=== PATIENT | male | born 1950 | race Caucasian/White ===

== ENCOUNTER → 2017-01-27 | Day surgery (SDC) | payer MEDICARE ==
[~2017-01-27] MED LIST: ACETAMINOPHEN 1000 MG/100 ML 100 ML IV ONE; BUPIVACAINE/EPINEPHRINE 0.25% 50 ML VIAL ONE; GLYCOPYRROLATE 1 MG/5 ML SYRINGE IV PUSH ONE; KETOROLAC TROMETHAMINE 30 MG/ML (IVP) VIAL IV PUSH ONE; LACTATED RINGER'S 1000 ML INJ 1,000 ML ONE; MEPERIDINE HCL 25 MG/ML VIAL ONE; METF500T PO; MIDAZOLAM HCL 2 MG/2 ML VIAL ONE; NEOSTIGMINE 3 MG/3 ML SYR IV ONE; ONDANSETRON HCL 4 MG/2 ML VIAL IV PUSH ONE; PROPOFOL 200 MG/20 ML AMP IV ONE; ROCURONIUM INJ 50 MG/5 ML SYRINGE IV PUSH ONE; TAMS5CAP PO; ceFAZolin 2 GM PREMIX 50 ML ONE; oxyCODONE/ACETAMINOPHEN 5 MG/325 MG TAB ONE
--- NOTE | 2017-01-27 10:36 | MP ---
cc: NIRAV HERR DATE OF SURGERY 01/27/2017 PREOPERATIVE DIAGNOSIS Chronic cholecystitis, cholelithiasis. POSTOPERATIVE DIAGNOSIS Chronic cholecystitis, cholelithiasis. PROCEDURE Laparoscopic cholecystectomy. SURGEON Nirav Herr MD ASSOCIATE MERCHANT Yazan Diaz, MS-3 ANESTHESIA General endotracheal OPERATIVE FINDINGS The patient was found to have a chronically diseased appearing gallbladder with a fair amount of scar tissue around the Nany's pouch area. The cystic duct was foreshortened, but it as well as the common bile duct were seen to be of normal caliber. There were no other abnormalities noted other than dense adhesions in the pelvis from his previous radiation therapy. OPERATIVE PROCEDURE The patient was brought to the operating room and after satisfactory general endotracheal anesthesia obtained, the abdomen was prepped and draped in the usual sterile fashion. 0.25% Marcaine with epinephrine was used to infiltrate the skin for local anesthesia. A small incision was made just above the umbilicus and a 5 mm trocar was inserted into the peritoneal cavity under direct visualization. The abdomen was then distended to 15 mmHg using carbon dioxide after which the camera was reinserted and the area was inspected for visceral injury, with none being identified. Under direct visualization, a 12 port and a 5 port were placed in the upper midline. The fundus of the gallbladder was identified, grasped and retracted superiorly over the right lobe of the liver. Nany's pouch was cleared of adhesions by blunt dissection after which it was grasped and retracted inferiorly and laterally, placing tension on the hepatoduodenal ligament. The cystic duct and cystic artery were both dissected free bluntly to obtain the critical view. The cystic duct was seen to be short as noted above and it was clipped near its junction with the common bile duct and divided with the harmonic scalpel near the gallbladder. The harmonic scalpel was then used to divide the cystic artery as well. The gallbladder was dissected free from the liver bed using the harmonic scalpel. The gallbladder was then placed within an EndoCatch bag and brought through the upper midline incision where it was withdrawn without problem. The cystic duct and cystic artery stumps were both inspected and found to be intact with no leakage of bile or blood. Irrigation was carried out hemostasis checked for again and found to be satisfactory. The pelvis was inspected and no gross abnormalities were noted other than dense scar tissue from his radiation therapy. The carbon dioxide was then vented as completely as possible to the atmosphere after which the ports were removed. The 12 mm fascial defect was closed with interrupted 0 Vicryl suture and the skin closed with interrupted 4-0 PDS subcuticular stitches. Steri-Strips were applied and the patient was then awakened and taken from the operating room, in satisfactory condition, having tolerated the procedure without problem. ESTIMATED BLOOD LOSS Less than 50 mL COUNTS The instrument, sponge, and needle counts were reported as being correct x2 at the end of procedure. MD IMANI Tracy/STORM /10:01 AM /10:28 AM
== END | disposition home or self-care (01) ==
LOC: ESDC 06:51
PROVIDERS: ATTEND Surgery
DX: K80.10 Calculus of gallbladder with chronic cholecystitis without obstruction (principal)
CPT/HCPCS: 00790; 47562; 88304; J0131; J0690; J1885; J2175; J2250; J2405; J2710; J3010; J7120

== ENCOUNTER 2017-04-28 14:43 | Inpatient (IN) | payer MEDICARE ==
[~2017-04-28 14:43] MED LIST changes: -ACETAMINOPHEN 1000 MG/100 ML 100 ML IV ONE; -BUPIVACAINE/EPINEPHRINE 0.25% 50 ML VIAL ONE; -GLYCOPYRROLATE 1 MG/5 ML SYRINGE IV PUSH ONE; -KETOROLAC TROMETHAMINE 30 MG/ML (IVP) VIAL IV PUSH ONE; -LACTATED RINGER'S 1000 ML INJ 1,000 ML ONE; -MEPERIDINE HCL 25 MG/ML VIAL ONE; -MIDAZOLAM HCL 2 MG/2 ML VIAL ONE; -NEOSTIGMINE 3 MG/3 ML SYR IV ONE; -ONDANSETRON HCL 4 MG/2 ML VIAL IV PUSH ONE; -PROPOFOL 200 MG/20 ML AMP IV ONE; -ROCURONIUM INJ 50 MG/5 ML SYRINGE IV PUSH ONE; -ceFAZolin 2 GM PREMIX 50 ML ONE; -oxyCODONE/ACETAMINOPHEN 5 MG/325 MG TAB ONE
[2017-04-28] MEDS ORDERED: LIDOCAINE HCL 1% 20 ML VIAL ONE (15:55)
[2017-04-28 16:00] VITALS: BP 134/76; PULSE 107; RESP 20; TEMP 96.9; O2SAT 99
[2017-04-28] MEDS: PANTOPRAZOLE SODIUM 40 MG VIAL IV PUSH SCH (16:08)
[2017-04-28] MEDS: SODIUM CHLOR 0.9% 1000 ML INJ 1,000 ML IV SCH (16:09)
[2017-04-28 16:22] LABS: AUTOMATED NEUTROPHIL # 5.8 TH/MM3 (1.8-7.7); BASOPHIL % 0.3 % (0.0-2.0); EOSINOPHIL # 0.1 TH/MM3 (0-0.4); EOSINOPHIL % 1.1 % (0.0-4.0); HEMATOCRIT 30.1 % (39.0-51.0); HEMOGLOBIN 9.7 GM/DL (13.0-17.0); LYMPH % 22.4 % (9.0-44.0); MEAN CELL VOLUME 74.7 FL (80.0-100.0); MEAN CORPUSCULAR HEMOGLOBIN 24.1 PG (27.0-34.0); MEAN CORPUSCULAR HGB CONC 32.2 % (32.0-36.0); MONOCYTE # 1.1 TH/MM3 (0-0.9); NEUT % 64.2 % (16.0-70.0); PLATELET COUNT 526 TH/MM3 (150-450); RED BLOOD COUNT 4.03 MIL/MM3 (4.50-5.90)
[2017-04-28 16:28] LABS: INTERNATIONAL NORMALIZED RATIO 1.2 RATIO; PROTHROMBIN TIME - PATIENT 11.9 SEC (9.8-11.6)
--- NOTE | 2017-04-28 16:37 | RADRPT ---
EXAM DATE/TIME: 04/28/2017 16:21 [facility] COMPARISON: No previous studies available for comparison. INDICATIONS : Pelvic pain in left lower region. ORAL CONTRAST: Prescribed oral contrast ingested. RADIATION DOSE: 10.18 CTDIvol (mGy) MEDICAL HISTORY : Cardiovascular disease. Diabetes mellitus type 2. SURGICAL HISTORY : None. ENCOUNTER: Initial ACUITY: 1 day PAIN SCALE: 2/10 LOCATION: Left pelvis TECHNIQUE: Volumetric scanning of the pelvis was performed. Using automated exposure control and adjustment of the mA and/or kV according to patient size, radiation dose was kept as low as reasonably achievable t o obtain optimal diagnostic quality images. DICOM format image data is available electronically for review and comparison. FINDINGS: CT of the pelvis was performed to determine if the questioned pelvic collection is actually extralumi nal or not. Unfortunately, contrast still has not passed into the left colon and rectosigmoid region and therefore the scan remains somewhat indeterminate. I would recommend giving the patient more oral contrast at this time and re-scanning the pelvis in the morning to determine if the collection is tr mariama extraluminal. If so, an abscess drain can be placed. CONCLUSION: CT of the pelvis was performed to determine if the questioned pelvic collection is actually extralumi nal or not. Unfortunately, contrast still has not passed into the left colon and rectosigmoid region and therefore the scan remains somewhat indeterminate. I would recommend giving the patient more oral contrast at this time and re-scanning the pelvis in the morning to determine if the collection is tr mariama extraluminal. If so, an abscess drain can be placed. Jayme Gutierrez MD on April 28, 2017 at 16:28 Board Certified Radiologist. This report was verified electronically.
[2017-04-28 16:45] LABS: ALBUMIN 2.5 GM/DL (3.4-5.0); ALT (GPT) 40 U/L (12-78); AST (GOT) 22 U/L (15-37); BLOOD UREA NITROGEN 10 MG/DL (7-18); CALCIUM 8.9 MG/DL (8.5-10.1); CHLORIDE 96 MEQ/L (98-107); CREATININE 0.64 MG/DL (0.60-1.30); GLOMERULAR FILTRATION RATE 125 ML/MIN (>89); GLUCOSE,RANDOM 138 MG/DL (74-106); SODIUM (NA) 132 MEQ/L (136-145)
[2017-04-28 16:47] LABS: ALKALINE PHOSPHATASE 248 U/L (45-117); TOTAL BILIRUBIN ADULT 0.4 MG/DL (0.2-1.0); TOTAL PROTEIN 8.4 GM/DL (6.4-8.2)
[2017-04-28 20:00] VITALS: BP 135/77; PULSE 105; RESP 18; TEMP 98.6; O2SAT 97
[2017-04-28] MEDS: DEXT 5%-NACL 0.9% 1000 ML INJ 1,000 ML IV SCH (22:39)
[2017-04-29] VITALS: BP 136/78; PULSE 105; RESP 18; TEMP 98; O2SAT 98
[2017-04-29] MEDS: SODIUM CHLOR 0.9% 1000 ML INJ 1,000 ML IV SCH ×3 (02:54→19:52)
[2017-04-29] MEDS ORDERED: DIATRIZOATE MEGLUM/DIATRIZOATE SOD 9 ML CUP PO SCH (06:00)
[2017-04-29 08:00] VITALS: BP 134/76; PULSE 111; RESP 16; TEMP 97.9; O2SAT 98
--- NOTE | 2017-04-29 08:41 | RADRPT ---
EXAM DATE/TIME: 04/29/2017 08:15 [facility] COMPARISON: CT PELVIS W/O CONTRAST, April 28, 2017, 16:21. INDICATIONS : Pelvic pain. ORAL CONTRAST: Prescribed oral contrast ingested. RADIATION DOSE: 10.36 CTDIvol (mGy) MEDICAL HISTORY : Hypertension. diabetes SURGICAL HISTORY : Cholecystectomy. ENCOUNTER: Initial ACUITY: 1 day PAIN SCALE: 5/10 LOCATION: Bilateral pelvis TECHNIQUE: Volumetric scanning of the pelvis was performed. Using automated exposure control and adjustment of the mA and/or kV according to patient size, radiation dose was kept as low as reasonably achievable t o obtain optimal diagnostic quality images. DICOM format image data is available electronically for review and comparison. FINDINGS: CT of the pelvis in the axial, coronal and sagittal planes now demonstrates adequate contrast opacifi cation of the left colon, sigmoid colon and rectum. There is evidence of a walled-off extraluminal co llection of air and contrast anterior to the mid sigmoid colon and superior to the urinary bladder wh ich extends to the level of the umbilicus indicating walled-off abscess. This collection measures 10. 2 cm sagittal by 6.0 cm AP by 5.7 cm transverse. There is significant wall thickening involving the m id sigmoid colon suggesting diverticulitis as the etiology of this extraluminal collection. The super ior wall of the urinary bladder appears somewhat thickened. No intraluminal air or contrast is noted within the urinary bladder to suggest colovesical fistula. Bilateral inguinal hernias (right larger than left) are again noted and contain only fat. The prostat e gland is stable. Degenerative changes are noted within the lower lumbar spine. CONCLUSION: Walled-off extraluminal collection of air and contrast anterior to the mid sigmoid colon and superior to the urinary bladder which extends to the level of the umbilicus indicating walled-off abscess. Th is collection measures 10.2 cm sagittal by 6.0 cm AP by 5.7 cm transverse. There is significant wall thickening involving the mid sigmoid colon suggesting diverticulitis as the etiology of this extralum inal collection. The superior wall of the urinary bladder appears somewhat thickened. No intraluminal air or contrast is noted within the urinary bladder. Jayme Gutierrez MD on April 29, 2017 at 8:27 Board Certified Radiologist. This report was verified electronically.
--- NOTE | 2017-04-29 09:45 | MH ---
cc: ALTAF WATSON M.D. DATE OF ADMISSION: 04/28/2017 ADMITTING DIAGNOSIS Abdominal pain, weight loss, history of anal cancer, abnormal CAT scan. CHIEF COMPLAINT Mr. Ashby is a 66-year-old male who complains of weight loss and abdominal pain. HISTORY OF PRESENT ILLNESS Mr. 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 The patient underwent radiation and chemotherapy protocol and had resolution of his squamous cell cancer. Unfortunately, he has not been seen for the last two years. He did have laparoscopic gallbladder surgery in January of 2017 for gallstones and chronic cholecystitis. The last two months the patient's family relates a decreasing appetite and weight loss. No fevers have been documented but he has been having some shakes and cold sweats. Bowel movements have been fairly good but he complains of lower abdominal discomfort. Denies any rectal bleeding. No nausea or vomiting. He has been very lethargic and minimal daily activities. The patient was seen in the office yesterday and rectal exam did not reveal any recurrence of his anal cancer. He did not have any obvious adenopathy in either groin. He was sent for CT scanning which returned today showing a possible complex mass or abscess in the pelvis along with lesions in the liver consistent with possible metastatic disease. The patient was therefore admitted for additional workup and more expeditious evaluation. PAST MEDICAL HISTORY 1. History of anal cancer 2016, treated radiation and chemotherapy. 2. History of cystitis and bladder neoplasm. 3. History of diabetes. 4. History of gallstones. 5. History of radiation proctitis. 6. History of inguinal hernia. MEDICATIONS Please see admitting list. ALLERGIES NONE KNOWN. SOCIAL HISTORY He is a former smoker and does not admit to any present alcohol intake. PERTINENT PHYSICAL GENERAL: A very pleasant, chronically ill-appearing male in no acute distress. HEENT: Remarkable for pale dry membranes. Nonicteric sclerae. NECK: Neck was a little stiff without adenopathy. CHEST: Diminished in the bases. Clear anteriorly. HEART: Heart had a regular rhythm. ABDOMEN: Abdomen is soft, doughy, fullness in the lower abdomen. No real mass noted. Inguinal hernia not easily reducible but no inguinal adenopathy. RECTAL: Anal inspection reveals radiation changes to the perianal tissues. Digital exam reveals decreased tone. No rectal inflammation or irregularity. No blood on the finger. EXTREMITIES: Extremities showed no cyanosis or clubbing and 1 to 2+ pedal edema. LABORATORY STUDIES White count was 9000, hemoglobin 9.7, MCV was 74.7, platelet count 526,000. Coagulation studies were normal. Chemistry show elevated alk phos to 248, total protein of 8.4, albumin of 2.5, normal bilirubin, sodium of 132, BUN and creatinine were pretty normal. IMAGING CT scan reviewed showing a possible complex mass or abscess in the pelvis, hard to distinguish from diverticular disease of the sigmoid colon. Several defects in the liver consistent with metastatic disease were also noted. IMPRESSION A 66-year-old male with treated squamous cell carcinoma of the anal canal back in 2016. The patient was lost to followup for a toib-efm-y-half and now presents with weight loss and possible metastatic disease by CT scan. The process in the pelvis is a little difficult to differentiate without contrast filling the rectosigmoid. Reviewed with the radiologist and we will give him additional oral contrast or administer rectal contrast and re-scan him first thing in the morning to distinguish intraluminal verses extraluminal fluid collections, and then decide if he needs to have percutaneous drainage or surgical exploration with resection. Dr. Claudio is consulted for additional evaluation of his liver mets and possible metastatic disease. Biopsy of the liver mets may be necessary for further documentation of their pathology. MD DERRICK Franco/RADHA /10:23 PM /9:05 AM
[2017-04-29 10:41] LABS: % SATURATION IRON PROFILE 14.6 % (20-50); IRON (FE) 20 MCG/DL (65-175); TOTAL IRON BINDING CAPACITY 137 MCG/DL (250-450)
[2017-04-29 10:44] LABS: FERRITIN 632 NG/ML (26-388)
--- NOTE | 2017-04-29 11:53 | MB ---
cc: CHALINO PARRISH M.D. DATE OF CONSULTATION: 04/28/17 REASON FOR CONSULTATION Patient with previous history of anal cell cancer presenting with possible pelvic abscess and liver metastases. PATIENT PROFILE The patient is a 66-year-old male. He was born in [place], [place]. He has lived in [place] for the past 19 years. He had worked as a NUTRITIONAL HEALTH COACH but has not felt well during the past year and has been unable to work. He lives alone. He has not smoked for approximately 30 years and had smoked a pack a day for 10 years. There is no history of any significant alcohol intake. HISTORY OF PRESENT ILLNESS I originally saw the patient in August of 2005. He was found by his primary care physician to have a mass extruding from the anal canal. He was referred to Dr. Boudreaux who is a colorectal surgeon and was found to have a squamous cell carcinoma of the anal canal which was a clinical T3 N0 M0 lesion. He was treated in the classic manner receiving radiation therapy as well as mitomycin and 5-FU on two occasions. He received a total of 55.8 Gy and treatment was finished by October of 2015. For reasons unclear, he did not followup with Dr. Boudreaux or his radiation oncologist. He is a poor historian and is withdrawn and quiet. He tells me that he has not been well for the past year. He has had some vague weakness and fatigue. He recently has had suprapubic discomfort. He tells me that he had outpatient studies which have been unrevealing. His primary care physician referred him to Dr. Boudreaux, and today he had a CAT scan of the abdomen and pelvis which I personally reviewed. He has approximately three lesions in the liver which are suggestive of metastatic disease but abscesses cannot be ruled out. There is also what appears to be an abscess in the pelvis. It is difficult to tell whether it is intrinsic or extrinsic to colon or whether they are connected. He is now admitted with the above problem. He has had no fevers. There has been a 30 pound weight loss. He has felt poorly. PAST SURGICAL HISTORY 1. Cholecystectomy 01/27/2017. Found to have chronic cholecystitis and cholelithiasis. 2. Urinary bladder biopsy 01/23/2017 showing chronic cystitis. 3. 07/27/2015 colonoscopy, anoscopy, and biopsy of tumor anal canal. Found to be a non-keratinizing squamous cell carcinoma. 4. Placement of port and removal of port. 5. Cataract surgery. PAST MEDICAL HISTORY 1. Type 2 diabetes. 2. Squamous cell carcinoma of the anal canal, clinical T3 N0 M0. Treated with mitomycin, 5-FU and radiation. MEDICATIONS PRIOR TO ADMISSION The patient stopped taking medications. He was previously on Metformin and Flomax. ALLERGIES NO ALLERGIES TO MEDICINE. FAMILY HISTORY Noncontributory. REVIEW OF SYSTEMS GENERAL: There has been weight loss of 30 lbs. He has felt poorly. No change in vision or hearing. No chest pain or palpitations. No shortness of breath. GASTROINTESTINAL: No melena or hematochezia. He has had some suprapubic discomfort. GENITOURINARY: Urinary burning MUSCULOSKELETAL: No bone pain. NEUROLOGIC: No focal weakness. SKIN: No skin problems. LABORATORY FINDINGS On 04/28/2017 hemoglobin 9.7, white count 9000, platelets 526,000, MCV 74. In December 2015 the MCV was 83 and the hemoglobin was 11.4. CEA is 0.9, alk phos 248, total protein 8.4, glucose 138, bilirubin, AST and ALT are normal, and creatinine is 0.64. IMAGING The patient underwent a CT of the pelvis today to determine if there was a pelvic collection of fluid either extraluminal or not. Contrast during the study did not pass into the left colon and therefore the scan remained indeterminate. PHYSICAL EXAMINATION GENERAL: Reveals a quiet, withdrawn individual with a flat affect. It is difficult to obtain a history. He volunteers very little information. VITAL SIGNS: Blood pressure is 130/75, respiratory rate is 20, afebrile and O2 sat is 99%. HEENT: Head is normocephalic. Sclerae and conjunctivae are normal. Oropharynx is unremarkable. LYMPHATICS: There is no cervical, supraclavicular, axillary or inguinal adenopathy. HEART: Regular rhythm. LUNGS: Lungs are clear. ABDOMEN: Soft. No hepatosplenomegaly. Slight suprapubic tenderness. EXTREMITIES: Without edema. MUSCULOSKELETAL: Significant muscle wasting. NEUROLOGIC: No focal weakness. RECTAL EXAM: No masses. Stool is brown. Prostate is boggy and enlarged but without any tenderness. ASSESSMENT The patient is a 66-year-old male who was treated for a clinical T3 N0 M0 squamous cell cancer of the anal canal. Treatment was completed by October of 2015. He was subsequently lost to followup. He has had an illness which appears chronic and now has evidence of at least three lesions in the liver suggestive of either metastases or abscesses and a possible abscess arising in the pelvis, although one cannot rule out local reoccurrence of tumor. PLAN 1. I have ordered a liver biopsy. Even if he has recurrent tumor in the pelvis, it will be important to determine if he has hematogenous spread to the liver. I have requested that the biopsy material also include Gram stain, culture and sensitivity. 2. He will need further evaluation of the pelvic abscess/mass. I have spoken with Dr. Boudreaux and it is likely that the radiologist will put in a drain to determine if this can in fact be drained. It will be important to define both what is going on in the pelvis and what is going on in the liver. The above was discussed with Dr. Boudreaux. Thank you very much for the consultation. MD CHET Michaels/RADHA /8:52 PM /10:53 AM [facility]
[2017-04-29 12:00] VITALS: BP 145/81; PULSE 105; RESP 16; TEMP 99.2; O2SAT 97
[2017-04-29] MEDS: metroNIDAZOLE 500 MG INJ 100 ML IV SCH ×2 (13:02→19:52)
[2017-04-29] MEDS ORDERED: MIDAZOLAM HCL 2 MG/2 ML VIAL ONE (14:20)
[2017-04-29] MEDS ORDERED: LIDOCAINE HCL 1% 20 ML VIAL ONE (14:25)
[2017-04-29 16:00] VITALS: BP 136/75; PULSE 87; RESP 17; TEMP 96.7; O2SAT 98
[2017-04-29] MEDS: PANTOPRAZOLE SODIUM 40 MG VIAL IV PUSH SCH (16:00)
--- NOTE | 2017-04-29 16:36 | RADRPT ---
EXAM DATE/TIME: 04/29/2017 14:51 [facility] COMPARISON: No previous studies available for comparison. INDICATIONS : Pelvic abscess. SEDATION TIME: 20 minutes MEDICATION(S): 1.) 2 mg midazolam (Versed) IV 2.) 100 mcg fentanyl (Sublimaze) IV DEVICE(S): 1.) 16 Fr Skater MEDICAL HISTORY : Hypertension. Diabetes mellitus type 2. Hernia, inguinal. Anal cancer. SURGICAL HISTORY : Cholecystectomy. Cystoscopy. ENCOUNTER: Initial ACUITY: 1 day PAIN SCORE: 2/10 LOCATION: Bilateral pelvis PROCEDURE: PROCEDURE : 1. CT guided drainage of the pelvic abscess 2. Conscious sedation with continuous EKG and oximetry monitoring. The risks, benefits and alternatives to the procedure were explained and verbal and written consent w as obtained. Using automated exposure control and adjustment of the mA and/or kV according to patient size, radiation dose was kept as low as reasonably achievable to obtain optimal diagnostic quality i mages. The site was prepped in sterile fashion. Full sterile technique was used, including cap, ma sk, sterile gloves and gown and a large sterile sheet. Hand hygiene and 2% chlorhexidine and/or beta dine/alcohol prep was utilized per protocol for cutaneous antisepsis. The skin and subcutaneous tiss ues were infiltrated with local anesthetic solution. DICOM format image data is available electronic ally for review and comparison. Using CT guidance the prescribed site was localized. Drainage was performed using the prescribed cat heter The patient tolerated the procedure well and there were no complications. Conscious sedation was per formed with the prescribed dosages and duration as above in the presence of an independent trained ra diology nurse to assist in the monitoring of the patient. EKG and oximetry remained stable throughou t the procedure. The patient tolerated the procedure well and there were no complications. The patient was sent to pos t anesthesia recovery in stable condition. CONCLUSION: Uncomplicated CT guided drainage. Tadeo Ramirez MD on April 29, 2017 at 16:34 Board Certified Radiologist. This report was verified electronically.
[2017-04-29] MEDS: DEXT 5%-NACL 0.9% 1000 ML INJ 1,000 ML IV SCH (18:06)
[2017-04-29 20:00] VITALS: BP 125/69; PULSE 98; RESP 22; TEMP 97; O2SAT 98
[2017-04-29 21:35] LABS: BILIRUBIN, URINE NEG (NEG); BLOOD, URINE NEG (NEG); GLUCOSE,URINE NEG (NEG); KETONE, URINE 10 mg/dL (NEG); NITRITE,URINE NEG (NEG); PH, URINE 6.5 (5.0-8.5); URINE COLOR YELLOW (YELLW/STRAW); URINE LEUKOCYTE ESTERASE NEG (NEG)
[2017-04-30] VITALS: BP 131/70; PULSE 85; RESP 22; TEMP 97.6; O2SAT 98
[2017-04-30] MEDS: metroNIDAZOLE 500 MG INJ 100 ML IV SCH ×3 (04:04→20:05)
[2017-04-30] MEDS: SODIUM CHLOR 0.9% 1000 ML INJ 1,000 ML IV SCH ×2 (04:04→17:36)
[2017-04-30] MEDS: DEXT 5%-NACL 0.9% 1000 ML INJ 1,000 ML IV SCH ×2 (06:04→20:02)
[2017-04-30 08:00] VITALS: BP 131/74; PULSE 97; RESP 17; TEMP 96.6; O2SAT 99
[2017-04-30 12:00] VITALS: BP 132/78; PULSE 103; RESP 16; TEMP 96.7; O2SAT 99
[2017-04-30] MEDS: PANTOPRAZOLE SODIUM 40 MG VIAL IV PUSH SCH ×2 (13:10→17:35)
[2017-04-30 16:00] VITALS: BP 157/77; PULSE 101; RESP 17; TEMP 98.6; O2SAT 97
[2017-04-30 20:00] VITALS: BP 148/80; PULSE 106; RESP 17; TEMP 100.2; O2SAT 98
[2017-05-01] VITALS (9 sets, daily range): BP systolic 111–159; BP diastolic 65–85; PULSE 86–115; RESP 17–20; TEMP 96.7–99.1; O2SAT 94–98
[2017-05-01] MEDS: metroNIDAZOLE 500 MG INJ 100 ML IV SCH ×3 (04:14→21:41)
[2017-05-01] MEDS: SODIUM CHLOR 0.9% 1000 ML INJ 1,000 ML IV SCH ×2 (04:14→13:42)
[2017-05-01] MEDS: DEXT 5%-NACL 0.9% 1000 ML INJ 1,000 ML IV SCH ×2 (07:34→21:41)
[2017-05-01] MEDS ORDERED: MIDAZOLAM HCL 2 MG/2 ML VIAL ONE (14:55)
[2017-05-01] MEDS ORDERED: LIDOCAINE HCL 1% 20 ML VIAL ONE (15:10)
[2017-05-01 15:36] LABS: AUTOMATED NEUTROPHIL # 8.2 TH/MM3 (1.8-7.7); BASOPHIL # 0.1 TH/MM3 (0-0.2); BASOPHIL % 0.6 % (0.0-2.0); EOSINOPHIL % 0.4 % (0.0-4.0); HEMOGLOBIN 10.6 GM/DL (13.0-17.0); LYMPHOCYTE # 2.5 TH/MM3 (1.0-4.8); MEAN CELL VOLUME 74.3 FL (80.0-100.0); MEAN CORPUSCULAR HEMOGLOBIN 23.9 PG (27.0-34.0); MEAN CORPUSCULAR HGB CONC 32.1 % (32.0-36.0); MONO % 8.4 % (0.0-8.0); NEUT % 69.6 % (16.0-70.0); PLATELET COUNT 516 TH/MM3 (150-450); RED BLOOD COUNT 4.45 MIL/MM3 (4.50-5.90); RED CELL DISTRIBUTION WIDTH 16.9 % (11.6-17.2); WHITE BLOOD COUNT 11.8 TH/MM3 (4.0-11.0)
[2017-05-01 15:56] LABS: ALBUMIN 2.4 GM/DL (3.4-5.0); AST (GOT) 12 U/L (15-37); BICARBONATE 26.7 MEQ/L (21.0-32.0); BLOOD UREA NITROGEN 4 MG/DL (7-18); CALCIUM 8.5 MG/DL (8.5-10.1); CHLORIDE 103 MEQ/L (98-107); CREATININE 0.58 MG/DL (0.60-1.30); GLOMERULAR FILTRATION RATE 140 ML/MIN (>89); GLUCOSE,RANDOM 116 MG/DL (74-106); SODIUM (NA) 139 MEQ/L (136-145)
[2017-05-01 16:00] LABS: ALKALINE PHOSPHATASE 234 U/L (45-117); ALT (GPT) 17 U/L (12-78); TOTAL BILIRUBIN ADULT 0.3 MG/DL (0.2-1.0); TOTAL PROTEIN 7.7 GM/DL (6.4-8.2)
--- NOTE | 2017-05-01 17:07 | PD.RAD ---
Post CT Procedure Prog Note Pre Procedure Diagnosis: (1) Anal cancer Post Procedure Diagnosis: (1) Anal cancer Procedure Date: May 01, 2017 Supervising Radiologist: Allan Da Silva Anesthesia: Conscious Sedation Plan of Activity Patient to Unit: Nursing Unit Patient Condition: Good See PACS Report for procedural detail/treatment Allan Da Silva MD May 01, 2017 17:07
--- NOTE | 2017-05-01 17:52 | RADRPT ---
EXAM DATE/TIME: 05/01/2017 15:51 [facility] COMPARISON: No previous studies available for comparison. INDICATIONS : History of anal cancer with newly diagnosed liver masses. SEDATION TIME: 30 minutes BIOPSY SITE: Right LIVER MEDICATION(S): 1.) 1 mg midazolam (Versed) IV 2.) 50 mcg fentanyl (Sublimaze) IV DEVICE(S): 1.) 18 gauge Temno core biopsy needle MEDICAL HISTORY : Hypertension. Diabetes mellitus type 2. Carcinoma, anal. Hernia SURGICAL HISTORY : Cholecystectomy ENCOUNTER: Initial ACUITY: 1 day PAIN SCORE: 3/10 LOCATION: Bx liver A total of four core specimen(s) were obtained and sent to the laboratory for pathologic evaluation. PROCEDURE: 1. CT guided liver biopsy. 2. Conscious sedation with continuous EKG and oximetry monitoring. Prior to the procedure informed consent was obtained. Any appropriate prior imaging studies were rev iewed. Using automated exposure control and adjustment of the mA and/or kV according to patient size, radiat ion dose was kept as low as reasonably achievable to obtain optimal diagnostic quality images. DICOM format image data is available electronically for review and comparison. The site was prepped in a sterile fashion. Full sterile technique was used, including cap, mask, michael rile gloves and gown and a large sterile sheet. Hand hygiene and 2% chlorhexidine and/or betadine/al cohol prep was utilized per protocol for cutaneous antisepsis. The skin and subcutaneous tissues wer e infiltrated with local anesthetic solution. With CT guidance a mass in segment 6 of the liver was targeted. Biopsy was performed using the prescr ibed needle as above. In total, 4 core biopsies were obtained. Small amount of Gelfoam was injected through the tract and the needle was removed. Adequate hemostasis was obtained with compression at th e puncture site. Follow-up CT scan reveals no hemorrhage. The patient tolerated the procedure well and there were no complications. The patient was returned to the Radiology Outpatient Unit in stable condition. CONCLUSION: 1. Uncomplicated CT guided 18 gauge core biopsies of mass in segment 6 of liver. Allan Da Silva MD on May 01, 2017 at 17:48 Board Certified Radiologist. This report was verified electronically.
--- NOTE | 2017-05-01 18:39 | PD.ONC.PN ---
Subjective Subjective Remarks feeling much better since drain placed. small amounts of liquid stool present. tolerated liver bx well Objective Data Date Time Temp Pulse Resp B/P (MAP) Pulse Ox O2 Delivery O2 Flow Rate FiO2 05/01/17 17:30 88 18 141/76 (97) 95 05/01/17 17:15 104 18 137/81 (99) 96 05/01/17 17:05 86 18 114/66 (82) 94 05/01/17 16:35 93 18 111/65 (80) 94 05/01/17 16:20 98.4 96 18 123/68 (86) 95 05/01/17 12:00 97.5 101 18 159/83 (108) 96 05/01/17 08:00 96.7 103 18 147/83 (104) 97 05/01/17 00:00 99.1 108 17 142/85 (104) 97 04/30/17 20:00 100.2 106 17 148/80 (102) 98 05/01/17 05/01/17 05/01/17 07:00 15:00 23:00 Intake Total 1540 ml Output Total 930 ml 20 ml Balance 610 ml -20 ml Result Diagram: 05/01/17 1503 05/01/17 1503 Laboratory Results Laboratory Tests Test 05/01/17 15:03 White Blood Count 11.8 TH/MM3 Red Blood Count 4.45 MIL/MM3 Hemoglobin 10.6 GM/DL Hematocrit 33.0 % Mean Corpuscular Volume 74.3 FL Mean Corpuscular Hemoglobin 23.9 PG Mean Corpuscular Hemoglobin Concent 32.1 % Red Cell Distribution Width 16.9 % Platelet Count 516 TH/MM3 Mean Platelet Volume 7.0 FL Neutrophils (%) (Auto) 69.6 % Lymphocytes (%) (Auto) 21.0 % Monocytes (%) (Auto) 8.4 % Eosinophils (%) (Auto) 0.4 % Basophils (%) (Auto) 0.6 % Neutrophils # (Auto) 8.2 TH/MM3 Lymphocytes # (Auto) 2.5 TH/MM3 Monocytes # (Auto) 1.0 TH/MM3 Eosinophils # (Auto) 0.0 TH/MM3 Basophils # (Auto) 0.1 TH/MM3 CBC Comment DIFF FINAL Differential Comment Blood Urea Nitrogen 4 MG/DL Creatinine 0.58 MG/DL Random Glucose 116 MG/DL Total Protein 7.7 GM/DL Albumin 2.4 GM/DL Calcium Level 8.5 MG/DL Alkaline Phosphatase 234 U/L Aspartate Amino Transf (AST/SGOT) 12 U/L Alanine Aminotransferase (ALT/SGPT) 17 U/L Total Bilirubin 0.3 MG/DL Sodium Level 139 MEQ/L Potassium Level 3.5 MEQ/L Chloride Level 103 MEQ/L Carbon Dioxide Level 26.7 MEQ/L Anion Gap 9 MEQ/L Estimat Glomerular Filtration Rate 140 ML/MIN Culture Results Microbiology Date/Time Source Procedure Growth Status 04/29/17 15:25 Abscess Abdomen Gram Stain Pending Received 04/29/17 15:25 Abscess Abdomen Wound Culture Pending Received 04/29/17 15:25 Abscess Other Acid Fast Stain Pending Received 04/29/17 15:25 Abscess Other Mycobacterial Culture Pending Received Imaging Studies Last 24 hours Impressions Liver Biopsy CT 05/01/17 0000 Signed Impressions: Service Date/Time: Monday, May 01, 2017 15:51 - CONCLUSION: 1. Uncomplicated CT guided 18 gauge core biopsies of mass in segment 6 of liver. Allan Da Silva MD Administered Medications Medications (Trade) Dose Ordered Sig/Taryn Route PRN Reason Start Time Stop Time Status Last Admin Dose Admin Sodium Chloride 1,000 ml @ 100 mls/hr Q10H IV 04/28/17 16:00 05/01/17 13:42 Pantoprazole Sodium (Protonix Inj) 40 mg Q24H IV PUSH 04/28/17 16:00 04/30/17 17:35 Metronidazole 100 ml @ 100 mls/hr Q8HR IV 04/29/17 14:00 05/01/17 13:41 Cefazolin Sodium 1000 mg/Sodium Chloride 100 ml @ 200 mls/hr Q6H IV 04/29/17 12:00 05/01/17 18:11 Objective Remarks GENERAL: quiet and reserved but looks better. SKIN: Warm and dry. HEAD: Normocephalic. EYES: No scleral icterus. No injection or drainage. NECK: Supple, trachea midline. No JVD or lymphadenopathy. LYMPHATIC: No adenopathy. CARDIOVASCULAR: Regular rate and rhythm without murmurs. RESPIRATORY: Breath sounds equal bilaterally. No accessory muscle use. GASTROINTESTINAL: Abdomen soft has drain in place with stool coming out EXTREMITIES: No cyanosis, or edema. MUSCULOSKELETAL: poor muscle tone. . NEUROLOGICAL: No obvious focal deficit. Awake, alert, and oriented x3. PSYCHIATRIC: reserved but feels better. Assessment/Plan Assessment 1: pathology in pelvis most consistent with abscess. Liver bx pending and worrisome. I spoke with Dr. Grove (pathology) and specimen from liver bx excellent and should be diagnostic. Above discussed with patient and family member today. Will return when liver bx is back. 2: iron studies consistent with chronic disease and not iron deficiency. 3: above discussed with Dr. Boudreaux. Gurpreet Claudio MD May 01, 2017 18:39
--- NOTE | 2017-05-01 21:42 | HHI.PR ---
Subjective Remarks C/R Surg afebrile, VSS Opal PO drain moderate stool colored fluid Objective - Vital Signs Date Time Temp Pulse Resp B/P (MAP) Pulse Ox O2 Delivery O2 Flow Rate FiO2 05/01/17 20:00 97.6 115 20 142/78 (99) 98 Result Diagram: 05/01/17 1503 05/01/17 1503 Other Results PE alert Abd - soft, flat, drain open A/P Assessment and Plan Imp: Bx liver done cont PO watch drain will prob need resection of rectosigm for fistula Spencer Boudreaux MD May 01, 2017 21:42
[2017-05-02] VITALS: BP 144/82; PULSE 110; RESP 20; TEMP 97.7; O2SAT 95
[2017-05-02] MEDS: SODIUM CHLOR 0.9% 1000 ML INJ 1,000 ML IV SCH ×2 (00:10→10:05)
[2017-05-02] MEDS: metroNIDAZOLE 500 MG INJ 100 ML IV SCH ×3 (04:37→21:31)
[2017-05-02 08:00] VITALS: BP 139/80; PULSE 105; RESP 16; TEMP 98; O2SAT 97
[2017-05-02] MEDS: DEXT 5%-NACL 0.9% 1000 ML INJ 1,000 ML IV SCH ×2 (11:15→18:38)
[2017-05-02 12:00] VITALS: BP 133/80; PULSE 112; RESP 16; TEMP 98.5; O2SAT 98
[2017-05-02] MEDS: PANTOPRAZOLE SODIUM 40 MG VIAL IV PUSH SCH (14:41)
[2017-05-02 16:00] VITALS: BP 153/78; PULSE 100; RESP 17; TEMP 98.6; O2SAT 97
--- NOTE | 2017-05-02 17:45 | HHI.PR ---
Subjective Remarks C/R Surg afebrile, VSS Opal PO drain min stool colored fluid Objective - Vital Signs Date Time Temp Pulse Resp B/P (MAP) Pulse Ox O2 Delivery O2 Flow Rate FiO2 05/02/17 16:00 98.6 100 17 153/78 (103) 97 Result Diagram: 05/01/17 1503 05/01/17 1503 Objective Remarks PE alert Abd - soft, flat, drain min A/P Assessment and Plan Imp: Bx liver done bx pending cont PO watch drain will prob need resection of rectosigm for fistula Spencer Boudreaux MD May 02, 2017 17:45
[2017-05-02 20:00] VITALS: BP 146/78; PULSE 110; RESP 20; TEMP 100.5; O2SAT 96
[2017-05-02 21:30] VITALS: TEMP 100.1
[2017-05-02] MEDS: ACETAMINOPHEN 325 MG TAB PO PRN (21:31)
[2017-05-03] VITALS: BP 121/70; PULSE 91; RESP 16; TEMP 97.4; O2SAT 99
[2017-05-03] MEDS: DEXT 5%-NACL 0.9% 1000 ML INJ 1,000 ML IV SCH (04:29)
[2017-05-03] MEDS: metroNIDAZOLE 500 MG INJ 100 ML IV SCH ×3 (04:29→21:54)
[2017-05-03 08:00] VITALS: BP 149/84; PULSE 97; RESP 17; TEMP 96.6; O2SAT 99
--- NOTE | 2017-05-03 10:29 | HHI.PR ---
Subjective Remarks C/R Surg Temp 110.5, now down, VSS Opal PO drain min stool colored fluid Objective - Vital Signs Date Time Temp Pulse Resp B/P (MAP) Pulse Ox O2 Delivery O2 Flow Rate FiO2 05/03/17 08:00 96.6 97 17 149/84 (105) 99 Result Diagram: 05/01/17 1503 05/01/17 1503 Objective Remarks PE alert Abd - soft, flat, drain min, non-tender A/P Assessment and Plan Imp: Bx liver done bx pending cont PO watch drain will prob need resection of rectosigm for fistula repeat CT Spencer Boudreaux MD May 03, 2017 10:29
[2017-05-03] MEDS ORDERED: SOD PHOSPHATE/SOD BIPHOSPHATE (ADULT) ENEMA 133ML RECTAL ONE (11:30)
[2017-05-03 12:00] VITALS: BP 126/73; PULSE 104; RESP 16; TEMP 98; O2SAT 98
--- NOTE | 2017-05-03 14:50 | RADRPT ---
EXAM DATE/TIME: 05/03/2017 14:22 [facility] COMPARISON: CT PELVIS W/O CONTRAST, April 28, 2017, 16:21. CT ABSCESS DRAINAGE KURT/RETRO, April 29, 2017, 1 4:51. CT PELVIS W/O CONTRAST, April 29, 2017, 8:15. INDICATIONS : Follow up pelvic abscess, with rectal contrast. ORAL CONTRAST: No oral contrast ingested. RADIATION DOSE: 7.0 CTDIvol (mGy) MEDICAL HISTORY : Hypertension. Diabetes SURGICAL HISTORY : Cholecystectomy. ENCOUNTER: Initial ACUITY: 4 - 6 days PAIN SCALE: 3/10 LOCATION: pelvis TECHNIQUE: Volumetric scanning of the pelvis was performed. Using automated exposure control and adjustment of the mA and/or kV according to patient size, radiation dose was kept as low as reasonably achievable t o obtain optimal diagnostic quality images. DICOM format image data is available electronically for review and comparison. FINDINGS: Abscess drainage catheter in good position. Minimal residual abscess cavity remains. Contrast is se en to communicate with the abscess cavity. Port image patient is in the sigmoid colon just above the bladder. Again the contrast is present in the colon. Bladder is unremarkable. CONCLUSION: Residual abscess cavity evident with communication to colon Dung Campos MD FACR on May 03, 2017 at 14:45 Board Certified Radiologist. This report was verified electronically.
[2017-05-03 16:00] VITALS: BP 135/75; PULSE 99; RESP 16; TEMP 98.4; O2SAT 98
[2017-05-03] MEDS: PANTOPRAZOLE SODIUM 40 MG VIAL IV PUSH SCH (16:07)
[2017-05-03 20:00] VITALS: BP 145/74; PULSE 95; RESP 16; TEMP 98.9; O2SAT 96
[2017-05-04] VITALS: BP 145/81; PULSE 93; RESP 16; TEMP 99.2; O2SAT 96
[2017-05-04] MEDS: DEXT 5%-NACL 0.9% 1000 ML INJ 1,000 ML IV SCH ×3 (00:39→17:24)
[2017-05-04] MEDS: metroNIDAZOLE 500 MG INJ 100 ML IV SCH ×3 (06:25→22:09)
[2017-05-04 08:00] VITALS: BP 144/84; PULSE 96; RESP 17; TEMP 98.3; O2SAT 95
--- NOTE | 2017-05-04 08:11 | HHI.FF ---
Face to Face Verification Diagnosis: (1) Intra-abdominal abscess Home Health Nursing Order: Medical education Signs/symptoms of disease process Medication education-adverse effect Wound care and dressing changes Instructions: catheter care I have seen patient Kishore Ashby on 05/04/17. My clinical findings support the need for the requested home health care services because: Ltd mobility - disease progression Deconditioned w/ increased weakness Limited ability to care for self Impaired cognition/judgement Infection w/ risk of complications I certify that my clinical findings support that this patient is homebound because: Post-op weakness Unsteady gait/balance Need for psychosocial assistance Spencer Boudreaux MD May 04, 2017 08:11
--- NOTE | 2017-05-04 09:06 | HHI.PR ---
Subjective Remarks C/R Surg Temp down, VSS Opal PO drain min stool colored fluid Objective - Vital Signs Date Time Temp Pulse Resp B/P (MAP) Pulse Ox O2 Delivery O2 Flow Rate FiO2 05/04/17 00:00 99.2 93 16 145/81 (102) 96 Result Diagram: 05/01/17 1503 05/01/17 1503 Objective Remarks PE alert Abd - soft, flat, drain min, non-tender +BM A/P Assessment and Plan Imp: Bx liver done bx pending - prob squamous cell cancer cont PO watch drain will prob need resection of rectosigm for fistula Spencer Boudreaux MD May 04, 2017 09:06
[2017-05-04 12:00] VITALS: BP 150/88; PULSE 98; RESP 17; TEMP 98.1; O2SAT 98
[2017-05-04] MEDS: PANTOPRAZOLE SODIUM 40 MG VIAL IV PUSH SCH (15:34)
[2017-05-04 16:00] VITALS: BP 151/87; PULSE 100; RESP 17; TEMP 99.1; O2SAT 91
[2017-05-04 20:00] VITALS: BP 142/73; PULSE 98; RESP 22; TEMP 98.7; O2SAT 97
--- NOTE | 2017-05-04 20:24 | PD.ONC.PN ---
Subjective Subjective Remarks patient comfort. as always he is withdrawn Objective Data Date Time Temp Pulse Resp B/P (MAP) Pulse Ox O2 Delivery O2 Flow Rate FiO2 05/04/17 16:00 99.1 100 17 151/87 (108) 91 05/04/17 12:00 98.1 98 17 150/88 (108) 98 05/04/17 08:00 98.3 96 17 144/84 (104) 95 05/04/17 00:00 99.2 93 16 145/81 (102) 96 05/04/17 05/04/17 05/04/17 07:00 15:00 23:00 Intake Total 1580 ml 100 ml 1548 ml Output Total 900 ml 555 ml Balance 680 ml 100 ml 993 ml Result Diagram: 05/01/17 1503 05/01/17 1503 Administered Medications Medications (Trade) Dose Ordered Sig/Taryn Route PRN Reason Start Time Stop Time Status Last Admin Dose Admin Pantoprazole Sodium (Protonix Inj) 40 mg Q24H IV PUSH 04/28/17 16:00 05/04/17 15:34 Dextrose/Sodium Chloride 1,000 ml @ 75 mls/hr [id number] IV 04/28/17 15:45 05/04/17 17:24 Metronidazole 100 ml @ 100 mls/hr Q8HR IV 04/29/17 14:00 05/04/17 13:38 Cefazolin Sodium 1000 mg/Sodium Chloride 100 ml @ 200 mls/hr Q6H IV 04/29/17 12:00 05/04/17 17:23 Acetaminophen (Tylenol) 650 mg Q4H PRN PO FEVER 05/02/17 21:15 05/02/17 21:31 Objective Remarks GENERAL: appears comfortable but frail SKIN: Warm and dry. HEAD: Normocephalic. EYES: No scleral icterus. No injection or drainage. NECK: Supple, trachea midline. No JVD or lymphadenopathy. LYMPHATIC: No adenopathy. CARDIOVASCULAR: Regular rate and rhythm without murmurs. RESPIRATORY: Breath sounds equal bilaterally. No accessory muscle use. GASTROINTESTINAL: Abdomen soft, non-tender, nondistended. small amount of drainage from tube EXTREMITIES: No cyanosis, or edema. MUSCULOSKELETAL: poor muscle tone. NEUROLOGICAL: No obvious focal deficit. Awake, alert, and oriented x3. 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 I met with brother and sister after speaking with Dr Boudreaux and reviewed situation. His disease currently would not be considered curable with multiple liver mets. options for systemic treatment include kasaan and 5FU as the most common regimen used with transient responses and probably modest improvement in survival. It comes with significant side effects and can not take place unless the infection is fully resolved. If this is not successful I would recommend treatment with antibody against PD1 such as nivolumab or pembroluzimab. This has been used in limited studies and appears to have similar response rates to what we see in head and neck cancer where there is FDA approval making it easy to obtain the drug. Ultimately this holds out the most hope although response rates are generally around 25% and the drug may be difficult to obtain from insurance companies or hand cutter. 2: patient needs resolution of infection and it would be reasonable to attempt to remove the bowel segment responsible for perforation/abscess even if he does not undergo chemotherapy or immunotherapy. 3: Current situation discussed at length with brother and sister and they have a clear understanding of the issues and options ranging from hospice to surgery , chemotherapy and immune therapy. They will discuss this with Dr. Boudreaux tomorrow. I will be back next week but at present do not have an active role except to provide information, advise and answer questions. Gurpreet Claudio MD May 04, 2017 20:24
[2017-05-05] VITALS: BP 143/75; PULSE 100; RESP 22; TEMP 98.8; O2SAT 96
[2017-05-05 04:00] VITALS: BP 132/76; PULSE 104; RESP 20; TEMP 97.7; O2SAT 98
[2017-05-05] MEDS: metroNIDAZOLE 500 MG INJ 100 ML IV SCH ×3 (05:39→21:30)
[2017-05-05 08:00] VITALS: BP 151/86; PULSE 93; RESP 17; TEMP 97.4; O2SAT 97
[2017-05-05] MEDS: DEXT 5%-NACL 0.9% 1000 ML INJ 1,000 ML IV SCH (09:30)
[2017-05-05 12:00] VITALS: BP 142/83; PULSE 99; RESP 17; TEMP 97.7; O2SAT 98
[2017-05-05 16:00] VITALS: BP 140/87; PULSE 96; RESP 17; TEMP 98.8; O2SAT 97
[2017-05-05] MEDS: PANTOPRAZOLE SODIUM 40 MG VIAL IV PUSH SCH (16:27)
[2017-05-05 20:00] VITALS: BP 154/82; PULSE 94; RESP 21; TEMP 98.5; O2SAT 98
--- NOTE | 2017-05-05 22:16 | HHI.PR ---
Subjective Remarks C/R Surg Temp down, VSS Opal PO drain min stool colored fluid Objective - Vital Signs Date Time Temp Pulse Resp B/P (MAP) Pulse Ox O2 Delivery O2 Flow Rate FiO2 05/05/17 16:00 98.8 96 17 140/87 (104) 97 Result Diagram: 05/01/17 1503 05/01/17 1503 Objective Remarks PE alert Abd - soft, flat, drain min, non-tender +BM A/P Assessment and Plan Imp: Bx liver done bx - squamous cell cancer cont PO watch drain will prob need resection of rectosigm for fistula - will sched for Monday Spencer Boudreaux MD May 05, 2017 22:16
[2017-05-06] VITALS: BP 147/87; PULSE 93; RESP 21; TEMP 95; O2SAT 98
[2017-05-06] MEDS: DEXT 5%-NACL 0.9% 1000 ML INJ 1,000 ML IV SCH ×3 (01:03→20:36)
[2017-05-06] MEDS: metroNIDAZOLE 500 MG INJ 100 ML IV SCH ×3 (05:11→20:36)
[2017-05-06 06:55] LABS: AUTOMATED NEUTROPHIL # 5.3 TH/MM3 (1.8-7.7); BASOPHIL % 0.4 % (0.0-2.0); EOSINOPHIL # 0.1 TH/MM3 (0-0.4); EOSINOPHIL % 0.8 % (0.0-4.0); HEMATOCRIT 27.9 % (39.0-51.0); HEMOGLOBIN 9.2 GM/DL (13.0-17.0); LYMPH % 20.4 % (9.0-44.0); LYMPHOCYTE # 1.6 TH/MM3 (1.0-4.8); MEAN CORPUSCULAR HEMOGLOBIN 24.5 PG (27.0-34.0); MEAN PLATELET VOLUME 7.6 FL (7.0-11.0); MONOCYTE # 0.8 TH/MM3 (0-0.9); NEUT % 68.4 % (16.0-70.0); PLATELET COUNT 463 TH/MM3 (150-450); RED BLOOD COUNT 3.77 MIL/MM3 (4.50-5.90); RED CELL DISTRIBUTION WIDTH 16.5 % (11.6-17.2); WHITE BLOOD COUNT 7.7 TH/MM3 (4.0-11.0)
[2017-05-06 07:43] LABS: BICARBONATE 26.8 MEQ/L (21.0-32.0); CALCIUM 7.8 MG/DL (8.5-10.1); CREATININE 0.49 MG/DL (0.60-1.30)
[2017-05-06 08:00] VITALS: BP 121/73; PULSE 111; RESP 21; TEMP 98.2; O2SAT 99
--- NOTE | 2017-05-06 08:59 | HHI.PR ---
Subjective Remarks C/R Surg Temp down, VSS Opal PO drain min stool colored fluid Objective - Vital Signs Date Time Temp Pulse Resp B/P (MAP) Pulse Ox O2 Delivery O2 Flow Rate FiO2 05/06/17 08:00 98.2 111 21 121/73 (89) 99 Result Diagram: 05/06/17 0355 05/06/17 0355 Objective Remarks PE alert Abd - soft, flat, drain min, non-tender +BM A/P Assessment and Plan Imp: Bx liver done bx - squamous cell cancer, will need chemotherapy cont PO watch drain will prob need resection of rectosigm for fistula - will sched for Monday Spencer Boudreaux MD May 06, 2017 08:59
[2017-05-06 12:00] VITALS: BP 160/86; PULSE 108; RESP 18; TEMP 98.5; O2SAT 100
[2017-05-06 16:00] VITALS: BP 157/82; PULSE 107; RESP 20; TEMP 97.8; O2SAT 96
[2017-05-06] MEDS: PANTOPRAZOLE SODIUM 40 MG VIAL IV PUSH SCH (16:56)
[2017-05-06 20:00] VITALS: BP 137/78; PULSE 105; RESP 18; TEMP 98.5; O2SAT 96
[2017-05-07 00:15] VITALS: BP 143/78; PULSE 101; RESP 18; TEMP 98.7; O2SAT 97
[2017-05-07] MEDS: metroNIDAZOLE 500 MG INJ 100 ML IV SCH ×3 (04:41→20:32)
[2017-05-07 08:00] VITALS: BP 138/76; PULSE 103; RESP 18; TEMP 99; O2SAT 98
[2017-05-07] MEDS: MAGNESIUM CITRATE SOLN 300 ML BTL PO ONE ×2 (08:30→09:11)
--- NOTE | 2017-05-07 09:06 | HHI.PR ---
Subjective Remarks C/R Surg Temp down, VSS Opal PO drain little Objective - Vital Signs Date Time Temp Pulse Resp B/P (MAP) Pulse Ox O2 Delivery O2 Flow Rate FiO2 05/07/17 08:00 99.0 103 18 138/76 (96) 98 Result Diagram: 05/06/1735405/06/175 Objective Remarks PE alert Abd - soft, flat, non-tender +BM A/P Assessment and Plan Imp: cont PO NPO after MN will prob need resection of rectosigm for fistula - will sched for Monday, bowel prep Spencer Boudreaux MD May 07, 2017 09:06
[2017-05-07 12:00] VITALS: BP 148/84; PULSE 101; RESP 20; TEMP 99.1; O2SAT 97
[2017-05-07] MEDS: DEXT 5%-NACL 0.9% 1000 ML INJ 1,000 ML IV SCH (13:05)
[2017-05-07 16:00] VITALS: BP 139/82; PULSE 106; RESP 18; TEMP 98.7; O2SAT 99
[2017-05-07] MEDS: PANTOPRAZOLE SODIUM 40 MG VIAL IV PUSH SCH (16:46)
--- NOTE | 2017-05-07 17:10 | EKG ---
Date Performed: 05/07/2017 Time Performed: 10:35:23 PTAGE: 66 years EKG: SINUS TACHYCARDIA NONSPECIFIC T-WAVE ABNORMALITY ABNORMAL RHYTHM ECG NO PREVIOUS TRACING DOCTOR: Papi Sahu Interpretating Date/Time 05/07/2017 17:09:38
[2017-05-07 20:00] VITALS: BP 145/76; PULSE 97; RESP 20; TEMP 98.7; O2SAT 100
[2017-05-07] MEDS ORDERED: MAGNESIUM CITRATE SOLN 300 ML BTL PO ONE (23:30)
[2017-05-08] VITALS: BP 148/79; PULSE 103; RESP 20; TEMP 98.5; O2SAT 96
[2017-05-08] MEDS: DEXT 5%-NACL 0.9% 1000 ML INJ 1,000 ML IV SCH (01:12)
[2017-05-08] MEDS ORDERED: SODIUM CHLORID 0.9% 500 ML IV PRN (01:30)
[2017-05-08] MEDS ORDERED: LACTATED RINGER'S 1000 ML IV PRN (01:30)
[2017-05-08 04:00] VITALS: BP 116/69; PULSE 110; RESP 20; TEMP 98.9; O2SAT 97
[2017-05-08] MEDS: metroNIDAZOLE 500 MG INJ 100 ML IV SCH ×3 (05:49→21:49)
[2017-05-08] MEDS: PCA - TOTAL MG MORPHINE DELIVERED PER SHIFT SCH (06:00)
[2017-05-08 07:58] LABS: AUTOMATED NEUTROPHIL # 6.4 TH/MM3 (1.8-7.7); BASOPHIL % 0.1 % (0.0-2.0); EOSINOPHIL % 0.1 % (0.0-4.0); HEMATOCRIT 27.3 % (39.0-51.0); LYMPHOCYTE # 1.3 TH/MM3 (1.0-4.8); MEAN CELL VOLUME 73.7 FL (80.0-100.0); MEAN CORPUSCULAR HEMOGLOBIN 24.3 PG (27.0-34.0); MONO % 9.5 % (0.0-8.0); MONOCYTE # 0.8 TH/MM3 (0-0.9); NEUT % 75.3 % (16.0-70.0); PLATELET COUNT 426 TH/MM3 (150-450); RED BLOOD COUNT 3.71 MIL/MM3 (4.50-5.90); RED CELL DISTRIBUTION WIDTH 17.1 % (11.6-17.2); WHITE BLOOD COUNT 8.5 TH/MM3 (4.0-11.0)
[2017-05-08 08:00] VITALS: BP 123/74; PULSE 95; RESP 20; TEMP 98.6; O2SAT 95
[2017-05-08 12:00] VITALS: BP 125/74; PULSE 98; RESP 18; TEMP 97.9; O2SAT 96
[2017-05-08] MEDS ORDERED: NORMOSOL R INJ 2,000 ML IV ONE (12:00)
[2017-05-08] MEDS ORDERED: PHENYLEPH/NS 1000 MCG/10 ML SYR IV ONE (12:00)
[2017-05-08] MEDS ORDERED: LIDOCAINE HCL 1% PF 5 ML SYRINGE OTHER ONE (12:00)
[2017-05-08] MEDS ORDERED: ROCURONIUM INJ 50 MG/5 ML SYRINGE IV PUSH ONE (12:00)
[2017-05-08] MEDS ORDERED: ESMOLOL HCL 100 MG/10 ML VIAL IV ONE (12:00)
[2017-05-08] MEDS ORDERED: DEXAMETHASONE SOD PHOS 4 MG/ML VIAL IV ONE (12:00)
[2017-05-08] MEDS ORDERED: LACTATED RINGER'S 1000 ML INJ 2,000 ML IV ONE (12:00)
[2017-05-08] MEDS ORDERED: PROPOFOL 200 MG/20 ML AMP IV ONE (12:00)
[2017-05-08] MEDS ORDERED: ACETAMINOPHEN 1000 MG/100 ML 100 ML IV ONE (13:23)
[2017-05-08] MEDS ORDERED: SUGAMMADEX SODIUM 200 MG/2 ML VIAL IV PUSH ONE ×2 (13:24→18:22)
[2017-05-08] MEDS ORDERED: BUPIVACAINE HCL PF 0.5% 30 ML VIAL ONE ×5 (14:57→14:59)
--- NOTE | 2017-05-08 16:19 | PD.OP ---
Operative Report Date of Surgery: May 08, 2017 Preoperative Diagnosis: (1) Intra-abdominal abscess (2) Anal cancer Postoperative Diagnosis: (1) Intra-abdominal abscess (2) Anal cancer Procedure: Urologic procedures: Cystoscopy and placement of bilateral ureteral catheters Anesthesia: General Surgeon: Gil Tiwari Treating Plant Operator(s): None Operation and Findings: Indication for urologic procedures: Consult intraoperatively to pass bilateral ureteral catheters to aid in visualization of this patient's ureters during his colorectal procedure. Urologic surgery procedures in detail: Concurrent with the colorectal surgeon Dr. Boudreaux I proceeded with cystoscopy and placement of bilateral ureteral catheters as follows: Initially cystoscopic evaluation was performed utilizing the rigid cystoscope with the 22 Croatian sheath and 30 lens. The urethra was patent without stricture formation, the prostatic urethra was nonobstructing however there was some elevation to the bladder neck region secondary to enlargement to the median lobe. Further passive cystoscope within the urinary bladder revealed some inflammatory changes involving the dome and posterior wall. No discrete fistula or bladder tumor formation was noted. Both right and left ureteral orifices were correct anatomic position. I then proceeded with placing the left open-ended ureteral catheter as follows: Initially a sensor 0.035 wire was advanced up the patient's left ureter until a small amount of resistance was met. A 6 Croatian open-ended ureteral catheter was then advanced over this wire 25 cm in a cephalad direction. With the catheter in place, the wire was withdrawn and reintroduced through secondary site via the cystoscope. In similar fashion the contralateral side was accomplished. With both catheters in place the cystoscope and wire were withdrawn. A 16 Croatian 10 cc Pugh catheter was placed in both ureteral catheters were anchored to the Pugh via a connector. All 3 catheters were then placed to gravity drainage. Gil Tiwari MD May 08, 2017 16:19
[2017-05-08] MEDS ORDERED: MIDAZOLAM HCL 2 MG/2 ML VIAL ONE (16:28)
[2017-05-08 16:30] LABS: HEMATOCRIT 28.4 % (39.0-51.0); HEMOGLOBIN 9.3 GM/DL (13.0-17.0)
[2017-05-08] MEDS ORDERED: KETOROLAC TROMETHAMINE 30 MG/ML (IVP) VIAL IVP PRN (18:15)
[2017-05-08] MEDS ORDERED: BENZOCAINE 6 MG/MENTHOL 10 MG LOZENGE BUCCAL PRN (18:15)
[2017-05-08] MEDS ORDERED: ENALAPRILAT 1.25 MG/ML VIAL IV PUSH PRN (18:15)
[2017-05-08] MEDS ORDERED: POTASSIUM CHLOR 20 MEQ PREMIX 100 ML IV PRN (18:15)
[2017-05-08] MEDS: D5-NS + KCL 20 MEQ INJ 1,000 ML IV SCH ×2 (18:15→23:58)
[2017-05-08] MEDS ORDERED: BUPIVACAINE HCL PF 0.5% 30 ML VIAL NB SCH (18:15)
[2017-05-08] MEDS ORDERED: NALOXONE HCL 0.4 MG/ML AMP IV PUSH PRN (18:15)
[2017-05-08] MEDS ORDERED: ENALAPRILAT 2.5 MG/2 ML VIAL IV PUSH PRN (18:15)
[2017-05-08] MEDS ORDERED: ONDANSETRON HCL 4 MG/2 ML VIAL IV PUSH PRN (18:15)
[2017-05-08] MEDS ORDERED: ACETAMINOPHEN/HYDROcodone 325 MG/5 MG TAB PO PRN (18:15)
[2017-05-08] MEDS ORDERED: ACETAMINOPHEN 325 MG TAB PO PRN (18:15)
[2017-05-08] MEDS ORDERED: POTASSIUM CHLOR 40 MEQ PREMIX 100 ML IV PRN (18:15)
[2017-05-08] MEDS ORDERED: Post-op Orders (for Pharmacy) XX ONE (19:00)
[2017-05-08] MEDS: MORPHINE SULFATE 30 MG/30 ML PCA IV SCH (19:58)
[2017-05-08] MEDS: METOCLOPRAMIDE HCL 10 MG/2 ML VIAL IVS SCH (21:00)
[2017-05-09] VITALS (16 sets, daily range): BP systolic 136–153; BP diastolic 86–98; PULSE 18–128; RESP 16–20; TEMP 96.9–100; O2SAT 99–100
[2017-05-09] MEDS: metroNIDAZOLE 500 MG INJ 100 ML IV SCH ×2 (05:26→13:35)
[2017-05-09 07:29] LABS: AUTOMATED NEUTROPHIL # 9.6 TH/MM3 (1.8-7.7); BASOPHIL % 0.1 % (0.0-2.0); HEMATOCRIT 31.3 % (39.0-51.0); LYMPH % 10.8 % (9.0-44.0); LYMPHOCYTE # 1.3 TH/MM3 (1.0-4.8); MEAN CELL VOLUME 75.2 FL (80.0-100.0); MEAN CORPUSCULAR HGB CONC 31.9 % (32.0-36.0); MEAN PLATELET VOLUME 7.4 FL (7.0-11.0); MONO % 7.4 % (0.0-8.0); MONOCYTE # 0.9 TH/MM3 (0-0.9); NEUT % 81.7 % (16.0-70.0); PLATELET COUNT 522 TH/MM3 (150-450); RED BLOOD COUNT 4.16 MIL/MM3 (4.50-5.90); RED CELL DISTRIBUTION WIDTH 17.9 % (11.6-17.2); WHITE BLOOD COUNT 11.7 TH/MM3 (4.0-11.0)
[2017-05-09 07:52] LABS: BICARBONATE 25.3 MEQ/L (21.0-32.0); CALCIUM 7.7 MG/DL (8.5-10.1); CREATININE 0.88 MG/DL (0.60-1.30)
[2017-05-09] MEDS ORDERED: PANTOPRAZOLE SODIUM 40 MG VIAL IVP PRN (09:00)
[2017-05-09] MEDS: D5-NS + KCL 20 MEQ INJ 1,000 ML IV SCH ×3 (09:47→21:36)
[2017-05-09] MEDS: ALVIMOPAN 12 MG CAPSULE PO SCH ×2 (09:48→20:45)
[2017-05-09] MEDS: PANTOPRAZOLE SOD 40 MG DELAYED RELEASE TAB PO SCH (09:48)
[2017-05-09] MEDS: METOCLOPRAMIDE HCL 10 MG/2 ML VIAL IVS SCH ×2 (09:48→20:45)
--- NOTE | 2017-05-09 12:57 | PD.WCN.NOT ---
Wound Consult Description: Consult for NEW OSTOMY TEACHING per Dr Boudreaux Communicated with: Patient Recommendation: Rest Empty pouch when 1/3-1/2 full of effluent Change pouch every 5-7 days and PRN before leaks occur Additional Information: Patient seen on [facility] for ostomy assessment. Ostomy Type: Colostomy Surgeon: Spencer Boudreaux MD Date of Surgery: May 08, 2017 Educated patient on: Bringing educational materials and teaching when patient is more awake and receptive to teaching. Additional information Colostomy noted to left side abdomen is pink, moist, edematous, moderately protruding, functioning with light brown soft stool noted in pouch that was not emptied by sign writer letterer or painter at this time. Wafer is in place and intact without leaks noted. Patient was sleeping on and off easily aroused and falls asleep again during discussion on colostomy. Patient will be brought a [facility] educational kit with next teaching session on Monday05/10/17. Chiquita Diez May 09, 2017 12:57
[2017-05-09] MEDS: PCA - TOTAL MG MORPHINE DELIVERED PER SHIFT SCH ×2 (14:00→22:00)
[2017-05-09] MEDS: HEPARIN SODIUM - SQ 10,000 UNITS/ML VIAL SQ SCH (15:48)
--- NOTE | 2017-05-09 17:43 | PD.WCN.NOT ---
Wound Consult Description: Consult for NEW OSTOMY TEACHING per Dr Boudreaux Communicated with: LOBITO Estrada Recommendation: Rest Empty pouch when 1/3-1/2 full of effluent Change pouch every 5-7 days and PRN before leaks occur Additional Information: Patient given educational materials regarding colostomy. Ostomy Type: Colostomy Surgeon: Spencer Boudreaux MD Date of Surgery: May 08, 2017 Complete: Education materials (left at bedside. Patient sleeping. Post op day # 1) Educated patient on: Teaching session tomorrow 05/10/17. Additional information Spoke with LOBITO Estrada regarding teaching patient tomorrow. Stoma on left side abdomen is functioning with soft light brown effluent noted in pouch that was emptied by LOBITO Estrada prior to visiting patient. Chiquita [facility] May 09, 2017 17:43
[2017-05-09] MEDS: ACETAMINOPHEN 325 MG TAB PO PRN (20:44)
[2017-05-09] MEDS: MORPHINE SULFATE 30 MG/30 ML PCA IV SCH (20:46)
[2017-05-10] VITALS (22 sets, daily range): BP systolic 117–137; BP diastolic 62–91; PULSE 106–128; RESP 16–20; TEMP 98.2–99; O2SAT 98–100
[2017-05-10] MEDS: HEPARIN SODIUM - SQ 10,000 UNITS/ML VIAL SQ SCH (05:22)
[2017-05-10] MEDS: PCA - TOTAL MG MORPHINE DELIVERED PER SHIFT SCH ×3 (05:22→22:00)
[2017-05-10] MEDS: D5-NS + KCL 20 MEQ INJ 1,000 ML IV SCH ×2 (05:50→18:12)
[2017-05-10] MEDS: METOCLOPRAMIDE HCL 10 MG/2 ML VIAL IVS SCH ×2 (08:47→22:54)
[2017-05-10] MEDS: PANTOPRAZOLE SOD 40 MG DELAYED RELEASE TAB PO SCH (08:48)
[2017-05-10] MEDS: ALVIMOPAN 12 MG CAPSULE PO SCH ×2 (08:48→22:53)
[2017-05-10] MEDS: FUROSEMIDE 20 MG/2 ML VIAL IV PUSH SCH ×2 (10:41→22:54)
--- NOTE | 2017-05-10 10:49 | HHI.PR ---
Subjective Remarks C/R Surg POD # 2 Temp down, VSS - HR 120 drain little UO good - stents dc'd Objective - Vital Signs Date Time Temp Pulse Resp B/P (MAP) Pulse Ox O2 Delivery O2 Flow Rate FiO2 05/10/17 10:00 124 05/10/17 08:00 98.5 18 137/90 (106) 100 05/09/17 18:57 21 05/09/17 03:17 Nasal Cannula 2.00 Result Diagram: 05/09/1761905/09/17 0620 Objective Remarks PE alert Abd - soft, flat, non-tender wound clean A/P Assessment and Plan Imp: stable post-op OOB PT decr IVF Spencer Boudreaux MD May 10, 2017 10:49
[2017-05-10 10:57] LABS: AUTOMATED NEUTROPHIL # 17.2 TH/MM3 (1.8-7.7); HEMATOCRIT 27.8 % (39.0-51.0); HEMOGLOBIN 8.9 GM/DL (13.0-17.0); LYMPH % 9.2 % (9.0-44.0); LYMPHOCYTE # 1.8 TH/MM3 (1.0-4.8); MEAN CELL VOLUME 75.2 FL (80.0-100.0); MEAN CORPUSCULAR HEMOGLOBIN 24.2 PG (27.0-34.0); MEAN CORPUSCULAR HGB CONC 32.1 % (32.0-36.0); MONO % 4.9 % (0.0-8.0); NEUT % 85.9 % (16.0-70.0); PLATELET COUNT 593 TH/MM3 (150-450); RED BLOOD COUNT 3.69 MIL/MM3 (4.50-5.90); RED CELL DISTRIBUTION WIDTH 17.9 % (11.6-17.2); WHITE BLOOD COUNT 20.1 TH/MM3 (4.0-11.0)
[2017-05-10 11:24] LABS: CALCIUM 7.9 MG/DL (8.5-10.1); CREATININE 0.83 MG/DL (0.60-1.30)
--- NOTE | 2017-05-10 15:16 | RADRPT ---
EXAM DATE/TIME: 05/10/2017 14:49 [facility] COMPARISON: No previous studies available for comparison. INDICATIONS : Shortness of breath status post op. MEDICAL HISTORY : None. SURGICAL HISTORY : None. ENCOUNTER: Initial ACUITY: 1 day PAIN SCORE: Non-responsive. LOCATION: chest FINDINGS: A single view of the chest demonstrates the lungs to be symmetrically aerated without evidence of mas s, infiltrate or effusion. The cardiomediastinal contours are unremarkable. Osseous structures are intact. CONCLUSION: No acute disease. Saul Valentin MD on May 10, 2017 at 15:07 Board Certified Radiologist. This report was verified electronically.
--- NOTE | 2017-05-10 16:33 | PD.WCN.NOT ---
Wound Consult Description: Consult for NEW OSTOMY TEACHING per Dr Boudreaux Communicated with: LOBITO Navarro Patient brother at bedside Recommendation: Rest Empty pouch when 1/3-1/2 full of effluent Change pouch every 5-7 days and PRN before leaks occur Ostomy Type: Colostomy Surgeon: Spencer Boudreaux MD Date of Surgery: May 08, 2017 Complete: Education materials (left at bedside. Patient sleeping. Post op day # 1) Additional information Patient seen on [facility] for ostomy assessment. No teaching was done as patient is sleeping and only wakes for a few moments at a time. Patient brother at bedside during assessment of ostomy appliance and stoma. Stoma is pink, edematous, moderately protruding, moist, round, functioning with mucus and soft brown effluent. Appliance was changed today and appears to be intact and noted without leaks. Patient will be followed up with tomorrow for teaching if patient is awake and alert. Chiquita Diez [facility] May 10, 2017 16:33
[2017-05-10] MEDS: ACETAMINOPHEN/HYDROcodone 325 MG/5 MG TAB PO PRN ×2 (18:10→22:53)
[2017-05-11] VITALS (27 sets, daily range): BP systolic 116–131; BP diastolic 72–86; PULSE 92–118; RESP 17–24; TEMP 97.9–99.3; O2SAT 96–98
[2017-05-11] MEDS: PCA - TOTAL MG MORPHINE DELIVERED PER SHIFT SCH (05:21)
[2017-05-11] MEDS: D5-NS + KCL 20 MEQ INJ 1,000 ML IV SCH (06:11)
[2017-05-11 06:57] LABS: AUTOMATED NEUTROPHIL # 13.3 TH/MM3 (1.8-7.7); BASOPHIL % 0.2 % (0.0-2.0); EOSINOPHIL % 0.2 % (0.0-4.0); HEMATOCRIT 25.1 % (39.0-51.0); LYMPH % 14.2 % (9.0-44.0); LYMPHOCYTE # 2.3 TH/MM3 (1.0-4.8); MEAN CELL VOLUME 75.2 FL (80.0-100.0); MEAN CORPUSCULAR HEMOGLOBIN 23.9 PG (27.0-34.0); MEAN CORPUSCULAR HGB CONC 31.7 % (32.0-36.0); MEAN PLATELET VOLUME 7.3 FL (7.0-11.0); MONO % 4.4 % (0.0-8.0); MONOCYTE # 0.7 TH/MM3 (0-0.9); PLATELET COUNT 418 TH/MM3 (150-450); RED BLOOD COUNT 3.34 MIL/MM3 (4.50-5.90); RED CELL DISTRIBUTION WIDTH 17.4 % (11.6-17.2); WHITE BLOOD COUNT 16.3 TH/MM3 (4.0-11.0)
[2017-05-11 07:08] LABS: CALCIUM 7.9 MG/DL (8.5-10.1); CREATININE 0.49 MG/DL (0.60-1.30)
--- NOTE | 2017-05-11 07:58 | HHI.PR ---
Subjective Remarks C/R Surg POD # 3 Temp down, VSS drain little UO good - stents dc'd leave [place] Objective - Vital Signs Date Time Temp Pulse Resp B/P (MAP) Pulse Ox O2 Delivery O2 Flow Rate FiO2 05/11/17 07:01 98.5 107 17 125/83 (97) 98 05/09/17 18:57 21 05/09/17 03:17 Nasal Cannula 2.00 Result Diagram: 05/11/17 0600 05/11/17 0600 Objective Remarks PE alert Abd - soft, flat, non-tender wound clean, ON-Q dc'd A/P Assessment and Plan Imp: OOB PT decr IVF adv diet Specner Boudreaux MD May 11, 2017 07:58
[2017-05-11] MEDS: METOCLOPRAMIDE HCL 10 MG/2 ML VIAL IVS SCH ×2 (08:54→21:38)
[2017-05-11] MEDS: FUROSEMIDE 20 MG/2 ML VIAL IV PUSH SCH ×2 (08:55→21:37)
[2017-05-11] MEDS: PANTOPRAZOLE SOD 40 MG DELAYED RELEASE TAB PO SCH (08:56)
[2017-05-11] MEDS: ALVIMOPAN 12 MG CAPSULE PO SCH ×2 (08:56→21:37)
[2017-05-11] MEDS: ACETAMINOPHEN/HYDROcodone 325 MG/5 MG TAB PO PRN ×2 (14:02→21:37)
[2017-05-12] VITALS (18 sets, daily range): BP systolic 113–150; BP diastolic 73–90; PULSE 100–118; RESP 20–22; TEMP 98.5–99; O2SAT 97–99
[2017-05-12] MEDS: D5-NS + KCL 20 MEQ INJ 1,000 ML IV SCH ×2 (03:46→14:21)
[2017-05-12] MEDS: PANTOPRAZOLE SOD 40 MG DELAYED RELEASE TAB PO SCH (09:23)
[2017-05-12] MEDS: FUROSEMIDE 20 MG/2 ML VIAL IV PUSH SCH ×2 (09:23→21:09)
[2017-05-12] MEDS: METOCLOPRAMIDE HCL 10 MG/2 ML VIAL IVS SCH (09:23)
[2017-05-12] MEDS: ALVIMOPAN 12 MG CAPSULE PO SCH ×2 (09:43→21:09)
--- NOTE | 2017-05-12 11:27 | PD.WCN.NOT ---
Wound Consult Description: Consult for NEW OSTOMY TEACHING per Dr Boudreaux Communicated with: Patient LOBITO Mg Recommendation: Rest Empty pouch when 1/3-1/2 full of effluent Change pouch every 5-7 days and PRN before leaks occur Additional Information: Patient seen on [facility] for ostomy assessment, teaching, and appliance change. Ostomy Type: Colostomy Surgeon: Spencer Boudreaux MD Date of Surgery: May 08, 2017 Complete: Education materials (left at bedside. Patient sleeping. Post op day # 1), Rx (Left on chart), Other (Appliance changed with teaching completed regarding ostomy and skin care) Educated patient on: Deep breathing and use of I.S. Changing positions every 2 hours and PRN for comfort Removing ostomy appliance (barrier and pouch) with adhesive removal wipes Cleansing peristomal skin with water and soft cloths Measuring stoma Stoma appearance and function When to seek medical attention (stoma color and output) Molding barrier to fit over and around stoma Attaching pouch to flange and barrier Emptying pouch every 3-4 hours and PRN for output Releasing air from pouch to avoid lifting of appliance and eventually leaking Ensuring the pouch is completely and tightly closed Changing the barrier every 5-7 days and PRN before leaks occur Additional information Patient seen on [facility] for ostomy teaching, assessment, and appliance change as described above. Patient had visitors in room that gave us privacy during assessment and changing of appliance. Barrier was changed using a 2 3/4" moldable appliance that was ordered previously from [facility] and obtained. Removed barrier was observed and noted to have breakdown @ 9 o'clock where stool had leaked underneath appliance through to the surrounding tape. Peristomal skin was cleansed using soft cloths and warm water only. Peristomal skin was dried using soft cloth and skin prep was applied and allowed to air dry. Barrier was molded to the 1 3/4" stoma and applied. Pouch was then attached to the flange on the barrier. The bottom of the pouch was closed and secured tightly. 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 However at this time patient is weak and unable to care for his stoma independently and will need assistance until he becomes stronger and his dexterity improves greatly. Patient is in need of physical therapy and/or occupational therapy at this time and at discharge. Chiquita Diez [facility] May 12, 2017 11:27
--- NOTE | 2017-05-12 17:42 | HHI.PR ---
Subjective Remarks C/R Surg POD # 4 afebrile, VSS drain little UO good prasad PO Objective - Vital Signs Date Time Temp Pulse Resp B/P (MAP) Pulse Ox O2 Delivery O2 Flow Rate FiO2 05/12/17 12:00 98.9 111 22 113/73 (86) 99 05/09/17 18:57 21 05/09/17 03:17 Nasal Cannula 2.00 Result Diagram: 05/11/17 0600 05/11/17 0600 Objective Remarks PE alert Abd - soft, flat, non-tender wound clean A/P Assessment and Plan Imp: OOB PT decr IVF adv diet dc plans - PT/rehab Spencer Boudreaux MD May 12, 2017 17:42
[2017-05-12] MEDS ORDERED: METOCLOPRAMIDE HCL 10 MG/2 ML VIAL IVS PRN (17:45)
[2017-05-12] MEDS: ACETAMINOPHEN/HYDROcodone 325 MG/5 MG TAB PO PRN (21:09)
[2017-05-13] VITALS: BP 110/77; PULSE 108; PULSE 109; RESP 20; TEMP 97.7; O2SAT 100
[2017-05-13] MEDS: ACETAMINOPHEN/HYDROcodone 325 MG/5 MG TAB PO PRN (00:29)
[2017-05-13 04:17] VITALS: BP 97/64; PULSE 80; RESP 18; TEMP 96.9; O2SAT 98
[2017-05-13 08:00] VITALS: BP 113/74; PULSE 114; RESP 17; TEMP 98.3; O2SAT 99
--- NOTE | 2017-05-13 09:58 | HHI.PR ---
Subjective Remarks Pt severely deconditioned. Unable to get OOB without 2-3 people assist. Needs PT daily to at least get OOB daily. Objective Vital Signs Date Time Temp Pulse Resp B/P (MAP) Pulse Ox O2 Delivery O2 Flow Rate FiO2 05/13/17 04:17 96.9 80 18 97/64 (75) 98 05/13/17 00:00 108 05/13/17 00:00 97.7 109 20 110/77 (88) 100 05/12/17 23:00 108 05/12/17 22:00 114 05/12/17 21:00 110 05/12/17 20:00 99.0 110 20 118/81 (93) 99 05/12/17 20:00 110 05/12/17 19:00 110 05/12/17 17:58 98.5 115 20 118/81 (93) 99 05/12/17 15:00 114 05/12/17 14:00 106 05/12/17 12:00 98.9 111 22 113/73 (86) 99 05/12/17 10:00 111 05/12/17 10:00 100 I/O 05/12/17 05/12/17 05/12/17 05/13/17 05/13/17 05/13/17 07:00 15:00 23:00 07:00 15:00 23:00 Intake Total 240 ml 3068 ml Output Total 1460 ml 1560 ml 385 ml Balance -1220 ml 1508 ml -385 ml Intake Oral 240 ml IV Total 3068 ml Output Urine Total 1375 ml 1500 ml 325 ml Stool Total 25 ml Drainage Total 60 ml 60 ml 60 ml Result Diagram: 05/11/17 0600 05/11/17 0600 Objective Remarks VS-S Abd: flat,soft,packing removed from small wound-clean I&Os-OK No labs Assessment and Plan Assessment and Plan Stable- D/W family and RN OOB daily. Daily PT. Wound packing TISaul Mckeon MD May 13, 2017 09:58
[2017-05-13] MEDS: FUROSEMIDE 20 MG/2 ML VIAL IV PUSH SCH ×2 (10:22→21:02)
[2017-05-13] MEDS: PANTOPRAZOLE SOD 40 MG DELAYED RELEASE TAB PO SCH (10:23)
[2017-05-13] MEDS: ALVIMOPAN 12 MG CAPSULE PO SCH ×2 (10:23→21:02)
[2017-05-13 12:00] VITALS: BP 111/72; PULSE 110; RESP 17; TEMP 97.1; O2SAT 98
[2017-05-13] MEDS: D5-NS + KCL 20 MEQ INJ 1,000 ML IV SCH (13:19)
[2017-05-13 13:28] LABS: AUTOMATED NEUTROPHIL # 13.8 TH/MM3 (1.8-7.7); BASOPHIL # 0.1 TH/MM3 (0-0.2); BASOPHIL % 0.3 % (0.0-2.0); EOSINOPHIL # 0.1 TH/MM3 (0-0.4); EOSINOPHIL % 0.5 % (0.0-4.0); HEMATOCRIT 30.8 % (39.0-51.0); HEMOGLOBIN 9.7 GM/DL (13.0-17.0); LYMPH % 13.5 % (9.0-44.0); LYMPHOCYTE # 2.3 TH/MM3 (1.0-4.8); MEAN CELL VOLUME 75.2 FL (80.0-100.0); MEAN CORPUSCULAR HEMOGLOBIN 23.8 PG (27.0-34.0); MEAN CORPUSCULAR HGB CONC 31.6 % (32.0-36.0); MEAN PLATELET VOLUME 7.5 FL (7.0-11.0); MONO % 3.8 % (0.0-8.0); MONOCYTE # 0.6 TH/MM3 (0-0.9); NEUT % 81.9 % (16.0-70.0); PLATELET COUNT 473 TH/MM3 (150-450); RED BLOOD COUNT 4.09 MIL/MM3 (4.50-5.90); RED CELL DISTRIBUTION WIDTH 17.2 % (11.6-17.2); WHITE BLOOD COUNT 16.9 TH/MM3 (4.0-11.0)
[2017-05-13 13:50] LABS: BICARBONATE 27.8 MEQ/L (21.0-32.0); CALCIUM 8.1 MG/DL (8.5-10.1); CREATININE 0.51 MG/DL (0.60-1.30)
[2017-05-13 16:00] VITALS: BP 90/58; PULSE 107; RESP 17; TEMP 97.4; O2SAT 99
--- NOTE | 2017-05-13 19:00 | MP ---
cc: ALTAF WATSON M.D., RICHARD DATE OF SURGERY: 05/08/2017. PREOPERATIVE DIAGNOSIS: 1. Pelvic abscess. 2. History of diverticulitis. 3. History of anal cancer. POSTOPERATIVE DIAGNOSIS 1. Diverticulitis with chronic pelvic abscess. 2. Multiple of liver metastases. 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 PROCEDURE PERFORMED: 1. Exploratory laparotomy with proctosigmoidectomy, Nany pouch and descending colostomy. 2. Right hemicolectomy. SURGEON: Altaf Watson MD. FIELD SOFTWARE ENGINEER: Tadeo Gautam MD. DESCRIPTION OF THE PROCEDURE IN DETAIL: The patient was placed in the supine position. After adequate general anesthesia, his legs were placed in the universal stirrups and supported appropriately. The abdomen and perineum were then prepped with Betadine solution and draped in the usual sterile fashion. The abdomen was opened through an infraumbilical transverse incision dividing the rectus muscles with electrocautery. In the midline, there was extensive swelling and edema with induration and thickening of the linea alba all the way down toward the pelvis. This was sent off for biopsy only showing chronic inflammation. Further exploration showed a rock-hard mass in the pelvis involving the rectosigmoid colon stuck to the bladder and left pelvic sidewall. There was also the cecum and terminal ileum which was densely adherent to the inflammatory process. There appeared to be high-grade obstruction of the terminal ileum. The proximal colon was palpated and felt to be pretty unremarkable. The small bowel was run from the ligament of Treitz down toward this inflammatory process in the pelvis without any other abnormalities. The liver was pretty normal. The gallbladder had been previously removed. Stomach and duodenum were unremarkable. Great vessels were normal in caliber and only mildly calcified. First the sigmoid colon was mobilized medially by dividing along the white line of Toldt. The left ureteral stent was identified and carefully preserved. Dissection then proceeded up the left gutter freeing the left colon off the retroperitoneum, taking down the splenic flexure and entering the lesser sac and mobilizing the gastrocolic omentum off the transverse colon. The right retroperitoneal space was then opened and the bowel dissected off the presacral fascia, trying to preserve the presacral nerves. The cecum was mobilized out of this inflammatory mass and the small bowel was identifying a fistula in the distal small bowel. The right colon was therefore fully mobilized in preparation for a resection. Dissection then proceeded down to the pelvis encountering quite a bit of difficulty due to the rock-hard nature of this mass and inflammation. Anteriorly, the cavity was entered which was quite large and thick-walled and pretty empty due to the previous drainage catheter. This abutted onto the dome of the bladder. Once the cavity was entered, dissection proceeded a little more easily around the left pelvic sidewall, elevating this inflammatory mass off the iliac vessels and the left ureteral stent until it was fully mobilized. The rectal tissues below this inflammatory mass however were quite thickened and edematous and not suitable for any type of anastomosis. Therefore, the mesorectum was taken with electrocautery and the bowel divided using the contour stapling device in the proximal rectum. The pedicle for the superior hemorrhoidal vessels was identified and divided between Leslie's obtaining hemostasis with Vicryl ties. A point in the descending colon was chosen above the inflammatory mass and the remaining mesentery divided. The bowel was divided using a SELVIN stapling device and the specimen was removed. Next, attention was turned to the right colon. A point was chosen after mobilizing the hepatic flexure and the right colon for proximal division, and this was done with the SELVIN stapling device. The right colic vessel and ileocolic vessel taken between Leslie's obtaining hemostasis with Vicryl ties. The bowel was divided in the terminal ileum proximal to the inflammatory fistulas between Naomi clamps. Bowel continuity was then restored by firing the SELVIN stapler across the antimesenteric ends of the bowel closing the enterotomy with a TA 60 stapler. The mesenteric defect was closed with a running Vicryl suture and a 3-0 Vicryl crotch suture was placed as well. Next, attention was turned to the end colostomy, which was brought up through a circular stab wound in the left upper quadrant with good blood supply without tension. The pelvis was then irrigated copiously. The chronic abscess cavity was curetted for inflammatory granulation tissues. The inflammatory process along the midline was also debrided back to healthier posterior sheath. A Ziggy-Wallace drain was placed down into the pelvis and brought up through a stab wound in the right lower quadrant and secured to the skin with a nylon suture. The transverse incision was then closed anatomically in two layers using #1 PDS sutures to reapproximate the respective fascial layers. On-Q catheters were placed into the rectus sheath on both sides and brought up through subcutaneous tunnels above the transverse incision and secured to the subcutaneous tunnels above the transverse incision. The subcu tissues were irrigated copiously and the skin closed with a row of surgical thai. The wound area was washed with normal saline and dried and a sterile dressing of Telfa and gauze applied. Finally, the SELVIN staple line was removed from the end of the sigmoid colon and the stoma matured in the usual Isela fashion by placing a row interrupted chromic catgut sutures around the circumference. At completion, the stoma did appear to be viable and was patent through the fascial level. A sterile colostomy appliance was fitted over the new stoma. The patient tolerated the procedure quite well and was brought to the recovery room in stable condition. Sponge and needle counts were correct at the end of procedure. ADDENDUM: Examination of the liver did reveal at least three masses consistent with his known metastatic disease, none of which were amenable to resection. MD DERRICK Franco/HERLINDA /9:50 AM /6:43 PM
[2017-05-13 20:00] VITALS: BP 103/68; PULSE 106; RESP 22; TEMP 97.8; O2SAT 97
[2017-05-14] VITALS: BP 99/67; PULSE 108; RESP 20; TEMP 97.9; O2SAT 99
[2017-05-14] MEDS: D5-NS + KCL 20 MEQ INJ 1,000 ML IV SCH ×2 (05:46→22:00)
[2017-05-14 08:00] VITALS: BP 114/75; PULSE 96; RESP 17; TEMP 98.2; O2SAT 98
[2017-05-14] MEDS: ALVIMOPAN 12 MG CAPSULE PO SCH ×2 (09:33→22:02)
[2017-05-14] MEDS: PANTOPRAZOLE SOD 40 MG DELAYED RELEASE TAB PO SCH (09:33)
[2017-05-14] MEDS: FUROSEMIDE 20 MG/2 ML VIAL IV PUSH SCH ×2 (09:35→22:02)
--- NOTE | 2017-05-14 10:30 | HHI.PR ---
Subjective Remarks Pt says he got OOB yesterday. No N or V. Stooling thru colostomy Objective Vital Signs Date Time Temp Pulse Resp B/P (MAP) Pulse Ox O2 Delivery O2 Flow Rate FiO2 05/14/17 08:00 98.2 96 17 114/75 (88) 98 05/14/17 00:00 97.9 108 20 99/67 (78) 99 05/13/17 20:00 97.8 106 22 103/68 (80) 97 05/13/17 16:00 97.4 107 17 90/58 (69) 99 05/13/17 12:00 97.1 110 17 111/72 (85) 98 I/O 05/13/17 05/13/17 05/13/17 05/14/17 05/14/17 05/14/17 06:59 14:59 22:59 06:59 14:59 22:59 Intake Total 240 ml 240 ml 240 ml Output Total 1735 ml 550 ml 1225 ml Balance -1495 ml -310 ml -985 ml Intake Oral 240 ml 240 ml 240 ml Output Urine Total 1625 ml 500 ml 1200 ml Stool Total 50 ml Drainage Total 60 ml 50 ml 25 ml # Bowel Movements 0 Result Diagram: 05/13/17 1240 05/13/17 1240 Objective Remarks VS-S Abd: flat,soft,small wound-clean I&Os-OK Labs-OK Assessment and Plan Assessment and Plan Stable- D/W family OOB daily. Daily PT. Wound packing Saul Strong MD May 14, 2017 10:30
[2017-05-14 12:00] VITALS: BP 108/67; PULSE 111; RESP 17; TEMP 98.2; O2SAT 99
[2017-05-14 16:00] VITALS: BP 108/66; PULSE 106; RESP 17; TEMP 98.8; O2SAT 97
[2017-05-14 20:00] VITALS: BP 119/69; PULSE 113; RESP 22; TEMP 98.5; O2SAT 96
[2017-05-15] VITALS: BP 111/65; PULSE 110; RESP 20; TEMP 98.3; O2SAT 98
[2017-05-15 08:00] VITALS: BP 131/77; PULSE 105; RESP 16; TEMP 97.6; O2SAT 98
[2017-05-15] MEDS: PANTOPRAZOLE SOD 40 MG DELAYED RELEASE TAB PO SCH (08:44)
[2017-05-15] MEDS: ALVIMOPAN 12 MG CAPSULE PO SCH (08:44)
[2017-05-15] MEDS: FUROSEMIDE 20 MG/2 ML VIAL IV PUSH SCH (08:44)
[2017-05-15 12:00] VITALS: BP 111/74; PULSE 103; RESP 17; TEMP 97.3; O2SAT 98
[2017-05-15] MEDS: D5-NS + KCL 20 MEQ INJ 1,000 ML IV SCH (14:10)
[2017-05-15 16:00] VITALS: BP 126/70; PULSE 96; RESP 18; TEMP 96.6; O2SAT 99
--- NOTE | 2017-05-15 17:29 | HHI.PR ---
Subjective Remarks C/R Surg POD afebrile, VSS drain little, DC'd UO good prasad PO Objective - Vital Signs Date Time Temp Pulse Resp B/P (MAP) Pulse Ox O2 Delivery O2 Flow Rate FiO2 05/15/17 12:00 97.3 103 17 111/74 (86) 98 Result Diagram: 05/13/17 1240 05/13/17 1240 Objective Remarks PE alert Abd - soft, flat, non-tender wound clean, stoma functioning A/P Assessment and Plan Imp: OOB PT decr IVF adv diet dc plans - PT/rehab rto 1 week Spencer Boudreaux MD May 15, 2017 17:28
== END 2017-05-15 18:38 | DRG 330 ==
LOC: N07B 14:43 → HCIS 05-08 13:34 → N07A 05-13 00:47
PROVIDERS: ADMIT Colon & Rectal Surgery; ATTEND Colon & Rectal Surgery
PROC: 0W9G30Z Drainage of Peritoneal Cavity with Drainage Device, Percutaneous Approach (ICD-10-PCS; 2017-04-29)
PROC: 0FB03ZX Excision of Liver, Percutaneous Approach, Diagnostic (ICD-10-PCS; 2017-05-01)
PROC: 0DBP0ZZ Excision of Rectum, Open Approach (ICD-10-PCS; 2017-05-08)
PROC: 0T788DZ Dilation of Bilateral Ureters with Intraluminal Device, Via Natural or Artificial Opening Endoscopic (ICD-10-PCS; 2017-05-08)
PROC: 0DJD8ZZ Inspection of Lower Intestinal Tract, Via Natural or Artificial Opening Endoscopic (ICD-10-PCS; 2017-05-08)
PROC: 0DTF0ZZ Resection of Right Large Intestine, Open Approach (ICD-10-PCS; principal; 2017-05-08 14:18)
PROC: 0D1M0Z4 Bypass Descending Colon to Cutaneous, Open Approach (ICD-10-PCS; 2017-05-08 14:18)
DX: K57.20 Diverticulitis of large intestine with perforation and abscess without bleeding (principal); C78.7 Secondary malignant neoplasm of liver and intrahepatic bile duct; R53.1 Weakness; E11.9 Type 2 diabetes mellitus without complications; R63.4 Abnormal weight loss; Z85.048 Personal history of other malignant neoplasm of rectum, rectosigmoid junction, and anus; Z87.891 Personal history of nicotine dependence; Z92.3 Personal history of irradiation; Z79.84 Long term (current) use of oral hypoglycemic drugs
CPT/HCPCS: 47000; 49406; 71045; 72192; 77012; 80048; 80053; 81001; 82378; 82728; 82948; 83540; 83550; 85014; 85018; 85025; 85610; 86850; 86900; 86901; 86920; 87015; 87070; 87077; 87116; 87185; 87186; 87205; 87206; 88305; 88307; 88309; 88331; 88341; 88342; 93005; 94150; C1729; C1769; C9113; J0131; J0690; J1100; J1644; J1940; J2250; J2270; J2370; J2405; J2765; J3010; J3480; J7030; J7042; J7120; Q9963

== ENCOUNTER 2017-06-27 06:45 | Day surgery (SDC) | payer MEDICARE ==
[~2017-06-27] VITALS: Ht 180.3 cm; Wt 65.0 kg
[2017-06-27 07:05] VITALS: BP 146/80; PULSE 95; RESP 20; TEMP 97.7; O2SAT 100
[2017-06-27 07:29] LABS: BASOPHIL % 0.4 % (0.0-2.0); EOSINOPHIL # 0.1 TH/MM3 (0-0.4); EOSINOPHIL % 1.1 % (0.0-4.0); HEMATOCRIT 31.3 % (39.0-51.0); HEMOGLOBIN 10.1 GM/DL (13.0-17.0); LYMPH % 28.9 % (9.0-44.0); LYMPHOCYTE # 2.4 TH/MM3 (1.0-4.8); MEAN CELL VOLUME 76.7 FL (80.0-100.0); MEAN CORPUSCULAR HEMOGLOBIN 24.7 PG (27.0-34.0); MEAN CORPUSCULAR HGB CONC 32.2 % (32.0-36.0); MEAN PLATELET VOLUME 6.8 FL (7.0-11.0); MONO % 8.3 % (0.0-8.0); MONOCYTE # 0.7 TH/MM3 (0-0.9); NEUT % 61.3 % (16.0-70.0); PLATELET COUNT 401 TH/MM3 (150-450); RED BLOOD COUNT 4.08 MIL/MM3 (4.50-5.90); RED CELL DISTRIBUTION WIDTH 18.9 % (11.6-17.2); WHITE BLOOD COUNT 8.2 TH/MM3 (4.0-11.0)
[2017-06-27] MEDS ORDERED: SODIUM CHLORIDE 0.9% 1000 ML IV SCH (07:30)
[2017-06-27] MEDS ORDERED: VANCOMYCIN 1000 MG/NS 250 ML - implanted port/tunneled catheter IV SCH ×2 (07:30)
[2017-06-27] MEDS ORDERED: CHLORHEXIDINE GLUCONATE 2 % 1 PACK (2 CLOTHS) TOPICAL SCH (07:30)
[2017-06-27] MEDS ORDERED: POVIDONE IODINE 5% (ANTISEPSIS KIT) 4 APPLICATIONS EACH NARE SCH (07:30)
[2017-06-27] MEDS ORDERED: ceFAZolin 2 GM PREMIX 50 ML - implanted port/tunneled catheter insertion IV SCH (07:30)
[2017-06-27 07:39] LABS: PROTHROMBIN TIME - PATIENT 10.6 SEC (9.8-11.6)
[2017-06-27] MEDS ORDERED: MIDAZOLAM HCL 2 MG/2 ML VIAL ONE (08:03)
[2017-06-27] MEDS ORDERED: LIDOCAINE 1%/EPINEPHrine 1:100,000 SOLN 30 ML VIAL ONE (08:10)
--- NOTE | 2017-06-27 08:54 | PD.RAD ---
Post Procedure Progress Note Pre Procedure Diagnosis: (1) Anal cancer Post Procedure Diagnosis: (1) Anal cancer Procedure Date: Jun 27, 2017 Supervising Radiologist: Tadeo Ramirez Proceduralist/Assist: Guzman Wheat, RT(R), Nadine Albert RT(R) Anesthesia: Conscious Sedation Plan of Activity Patient to Unit: ROPU Patient Condition: Good See PACS Report for procedural detail/treatment Central Venous Access Device Procedure 1 Right Internal Jugular Infusaport Placement single lumen Tadeo Ramirez MD Jun 27, 2017 08:53
[2017-06-27 09:00] VITALS: BP 107/63; PULSE 85; RESP 16; TEMP 97.7; O2SAT 97
[2017-06-27] MEDS ORDERED: SODIUM CHLORIDE 0.9% FLUSH 10 ML FLUSH IVF PRN (09:00)
[2017-06-27 09:15] VITALS: BP 105/61; PULSE 84; RESP 16; O2SAT 96
[2017-06-27 09:45] VITALS: BP 112/68; PULSE 75; RESP 16; O2SAT 94
[2017-06-27 10:15] VITALS: BP 120/80; PULSE 86; RESP 16; O2SAT 99
[2017-06-27 10:45] VITALS: BP 120/81; PULSE 89; RESP 16; O2SAT 99
--- NOTE | 2017-06-27 15:51 | RADRPT ---
EXAM DATE/TIME: 06/27/2017 09:29 [place] COMPARISON: [id number] [facility]T, DAGOBERTOPORT, W US, RIGHT, September 01, 2015, 10:39. INDICATIONS : Patient with history of anal cancer with liver metastases in need of [id number] placement. MEDICAL HISTORY : Diabetes, HTN, Pelvic abscess, Diverticulitis, Squamous cell carcinoma of the anal canal, Liver mass, Chronic cystitis SURGICAL HISTORY : Liver mass biopsy, Anal canal biopsy, Exploratory laparotomy with proctosigmoidectomy, Nany pouch and descending colostomy, Right hemicolectomy, Colonoscopy and anoscopy ENCOUNTER: Initial ACUITY: >1 year PAIN SCORE: 0/10 FLUORO TIME: 0.3 minutes IMAGE SERIES: 1 SEDATION TIME: 15 minutes ACCESS: Right internal jugular vein SEDATION: 1.) 2 mg midazolam (Versed) IV 2.) 100 mcg fentanyl (Sublimaze) IV Prophylactic antibiotics were administered with appropriate pre-procedure timing. Vancomycin within 2 hours of procedure, Ancef (or alternative) within 1 hour of procedure. DEVICE: 1. 8 Yoruba single lumen Bard Power Port PROCEDURE : 1. Continuous pulse oximetry and EKG monitoring. 2. Intravenous conscious sedation. 3. Ultrasound guidance for venous access. 4. Fluoroscopic guided implantable central venous port placement. The patient was placed supine. The neck was prepped in sterile fashion. Full sterile technique was u sed, including cap, mask, sterile gloves and gown, and a large sterile sheet. Hand hygiene and 2% ch lorhexidine Betadine was utilized per protocol for cutaneous antisepsis with appropriate dry time for site. Sterile gel and sterile probe cover were utilized for ultrasound guidance. The skin and sub cutaneous tissues were infiltrated with local anesthetic solution. Under direct ultrasound guidance, central venous access was accomplished in the targeted vessel. The ultrasound images depicting access guidance were stored and saved to PACS for permanent record. A s ubcutaneous pocket was created using blunt dissection. The port was introduced to the pocket. The c atheter tubing was fed through a subcutaneous tunnel to the venotomy site. The catheter tubing was c ut to a suitable length and then was introduced through a valved Peel-Away sheath and positioned with catheter tubing tip at the cavo-atrial junction level. The pocket incision was closed with subcutic ular Vicryl suture. Steri-Strips were applied. The port was flushed and locked with heparin solutio n per protocol. Sterile dressing was applied to the site. The patient tolerated the procedure well. Conscious sedation was performed with the prescribed dosages and duration as above in the presence of an independent trained radiology nurse to assist in the monitoring of the patient. EKG and oximetry remained stable throughout the procedure. The patient tolerated the procedure well and there were no complications. The patient was sent to post anesthesia recovery in stable condition. CONCLUSION: Uncomplicated ultrasound and fluoroscopic guided implanted central venous port catheter placement as described in detail above. An 8 Yoruba Power port was placed. Tadeo Ramirez MD on June 27, 2017 at 15:49 Board Certified Radiologist. This report was verified electronically.
== END 2017-06-27 11:00 | disposition home or self-care (01) ==
LOC: HROP 06:45 → HRIP 06:46 → HROP 11:00
PROVIDERS: ATTEND Internal Medicine Hematology & Oncology
DX: C21.0 Malignant neoplasm of anus, unspecified (principal); C78.7 Secondary malignant neoplasm of liver and intrahepatic bile duct; E11.9 Type 2 diabetes mellitus without complications; I10 Essential (primary) hypertension; K57.92 Diverticulitis of intestine, part unspecified, without perforation or abscess without bleeding; N30.20 Other chronic cystitis without hematuria
CPT/HCPCS: 36561; 76937; 77001; 85025; 85610; 85730; 99152; C1788; J0690; J1642; J2250; J3010; J3370; J7030; J7050